=== PATIENT | male | born 1945 | race African-American/Black ===

== ENCOUNTER 2016-11-22 17:08 | Emergency (ER) | payer MEDICARE, MEDICAID ==
[~2016-11-22] VITALS: Ht 172.7 cm; Wt 81.6 kg
--- NOTE | 2016-11-22 17:17 | NUR ---
PT BIB PA FROM NURSING FACILITY C/O GENERALIZED BODY PAIN X1 WEEK. ATRAUMATIC. DENIES RECENT FALLS. NO NEURO DEFICITS. A/OX2, WHICH APPEARS TO BE BASELINE. DENIES N/V/D. IN ER BED 11.
[2016-11-22] MEDS ORDERED: ACETAMINOPHEN ES 500 MG TABLET ONE (17:37)
--- NOTE | 2016-11-22 17:40 | NUR ---
ROOF CEMENT AND PAINT MAKER AT BEDSIDE FOR DRAW
[2016-11-22 17:51] LABS: BASOPHILS % (AUTO) 0.5 % (0.0-2.0); EOSINOPHILS # (AUTO) 0.7 /CMM (0.0-0.7); EOSINOPHILS % (AUTO) 12.9 % (0.0-6.0); HEMATOCRIT 37 % (39-51); HEMOGLOBIN 12.7 g/dL (13.5-17.5); LYMPHOCYTES # (AUTO) 1.7 /CMM (0.8-4.8); LYMPHOCYTES % (AUTO) 31.2 % (20.0-44.0); MEAN CORPUSCULAR HEMOGLOBIN 30 PG (26.0-33.0); MEAN CORPUSCULAR HGB CONC 34 g/dl (31.0-36.0); MEAN CORPUSCULAR VOLUME 90 fL (80-96); MONOCYTES # (AUTO) 0.8 /CMM (0.1-1.30); MONOCYTES % (AUTO) 14.2 % (2.0-12.0); NEUTROPHILS # (AUTO) 2.3 /CMM (1.8-8.9); NEUTROPHILS % (AUTO) 41.2 % (43.0-81.0); PLATELET COUNT (AUTO) 187 /CMM (150-450); RDW COEFFICIENT OF VARIATION 13.4 (11.5-15.0); RED BLOOD CELL COUNT(AUTO) 4.17 MIL/uL (4.5-6.0); WHITE BLOOD COUNT (AUTO) 5.6 K/uL (4.3-11.0)
[2016-11-22] MEDS ORDERED: ACETAMINOPHEN ES 500 MG TABLET PO ONE (18:00)
[2016-11-22 18:01] LABS: CALCIUM, SERUM 8.2 mg/dL (8.5-10.1); CREATININE 0.9 mg/dL (0.6-1.3); POTASSIUM 4.1 mmol/L (3.5-5.1)
[2016-11-22] MEDS ORDERED: MIRT15TA7 PO (18:05)
[2016-11-22] MEDS ORDERED: DOCU-25 PO (18:05)
[2016-11-22] MEDS ORDERED: ACET-868 PO (18:05)
[2016-11-22] MEDS ORDERED: FLUT16SP NS (18:05)
[2016-11-22] MEDS ORDERED: PALI156D IM (18:05)
[2016-11-22] MEDS ORDERED: DIVA250T6 PO (18:05)
[2016-11-22] MEDS ORDERED: CHOL100044 PO (18:05)
[2016-11-22] MEDS ORDERED: MULT-15 PO (18:05)
[2016-11-22] MEDS ORDERED: SITA50TA PO (18:05)
[2016-11-22] MEDS ORDERED: ASCO500T9 PO (18:05)
[2016-11-22] MEDS ORDERED: THIA100T8 PO (18:05)
--- NOTE | 2016-11-22 18:54 | NUR ---
PAGED DR MCLEAN FOR DR CABEZAS
--- NOTE | 2016-11-22 18:58 | NUR ---
DR CABEZAS ON THE LINE WITH DR MCLEAN
--- NOTE | 2016-11-22 19:00 | NUR ---
CALLED [facility] FOR BLS TRANSPORT ETA 1 HOUR
--- NOTE | 2016-11-22 19:21 | NUR ---
resting comfortably, nad noted. ate dinner tray, no nausea/vomiting.
--- NOTE | 2016-11-22 19:58 | NUR ---
Patient discharged to SNF in stable condition. Written and verbal after care instructions given. Patient verbalizes understanding of instruction.
[2016-11-22 19:59] VITALS: BP 133/87
== END 2016-11-22 20:00 ==
LOC: ER 17:22
DX: R51 Headache (principal); E11.8 Type 2 diabetes mellitus with unspecified complications; F20.9 Schizophrenia, unspecified; Z98.890 Other specified postprocedural states
CPT/HCPCS: 36415; 70450; 80048; 85025; 93005; 99285; A4606; Z7610

== ENCOUNTER 2016-12-14 15:08 | Emergency (ER) | payer MEDICARE, MEDICAID ==
[~2016-12-14] VITALS: Ht 175.3 cm; Wt 82.1 kg
[~2016-12-14 15:08] MED LIST: ACET-868 PO; ASCO500T9 PO; CHOL100044 PO; DIVA250T6 PO; DOCU-25 PO; FLUT16SP NS; MIRT15TA7 PO; MULT-15 PO; PALI156D IM; SITA50TA PO; THIA100T8 PO
--- NOTE | 2016-12-14 15:12 | NUR ---
BIBRA FROM [facility] DT CHEST PAIN, ACHING, NON RADIATING, 5/10. PATIENT IS AAO4. APPEARS IN NO APPARENT DISTRESS, RESPIRTION EVEN AND UNLABORED. NO SOB NOTED, PATIENT ON ROOM AIR. SKIN IS WARM TO TOUCH AND NON DIAPHORETIC,PATIENT IS AFEBRILE. GOWNED PT AND PLACED ON TELE MONITOR. IV ON LFT HAND NOTED INTACT.
[2016-12-14] MEDS ORDERED: IBUP-1481 PO (15:18)
[2016-12-14 15:30] LABS: BASOPHILS % (AUTO) 0.8 % (0.0-2.0); EOSINOPHILS # (AUTO) 0.8 /CMM (0.0-0.7); EOSINOPHILS % (AUTO) 15.5 % (0.0-6.0); HEMATOCRIT 37 % (39-51); HEMOGLOBIN 12.5 g/dL (13.5-17.5); LYMPHOCYTES # (AUTO) 1.6 /CMM (0.8-4.8); LYMPHOCYTES % (AUTO) 31.3 % (20.0-44.0); MEAN CORPUSCULAR HEMOGLOBIN 31 PG (26.0-33.0); MEAN CORPUSCULAR HGB CONC 34 g/dl (31.0-36.0); MEAN CORPUSCULAR VOLUME 90 fL (80-96); MONOCYTES # (AUTO) 0.6 /CMM (0.1-1.30); MONOCYTES % (AUTO) 10.9 % (2.0-12.0); NEUTROPHILS # (AUTO) 2.1 /CMM (1.8-8.9); NEUTROPHILS % (AUTO) 41.5 % (43.0-81.0); PLATELET COUNT (AUTO) 221 /CMM (150-450); RDW COEFFICIENT OF VARIATION 12.1 (11.5-15.0); WHITE BLOOD COUNT (AUTO) 5.1 K/uL (4.3-11.0)
[2016-12-14 15:42] LABS: CALCIUM, SERUM 8.3 mg/dL (8.5-10.1); CARBON DIOXIDE 23 mmol/L (21-32); CHLORIDE 108 mmol/L (98-107); CREATININE 1.1 mg/dL (0.6-1.3); GLUCOSE 116 mg/dL (74-106); POTASSIUM 3.7 mmol/L (3.5-5.1); SODIUM SERUM 141 mmol/L (136-145); UREA NITROGEN, BLOOD 16 mg/dL (7-18)
--- NOTE | 2016-12-14 15:45 | NUR ---
NURSING METALLURGICAL ANALYST INFORMED OF TELEMETRY ADMISSION
[2016-12-14 15:46] LABS: INR 1.15 (0.87-1.13); PROTHROMBIN TIME 12.1 SECS (9.5-12.7)
[2016-12-14 15:50] LABS: TROPONIN I < 0.017 ng/mL (0.00-0.056)
--- NOTE | 2016-12-14 15:54 | NUR ---
PAGED DR MCLEAN FOR ADMISSION
--- NOTE | 2016-12-14 16:33 | NUR ---
REPAGED DR MCLEAN FOR CALL BACK
--- NOTE | 2016-12-14 17:02 | NUR ---
CALLED [facility] FOR BLS TRANSPORT BACK TO FACILITY ETA 30 MINUTES
--- NOTE | 2016-12-14 17:55 | NUR ---
REPORT GIVEN TO MED RESPONSE TEAM FOR TRANSPORT BACK TO [facility].
[2016-12-14 18:05] VITALS: BP 109/71
== END 2016-12-14 18:07 ==
LOC: ER 15:10
DX: R07.9 Chest pain, unspecified (principal); M54.5 Low back pain; F20.9 Schizophrenia, unspecified; E11.9 Type 2 diabetes mellitus without complications
CPT/HCPCS: 36415; 71010; 72110; 72170; 80048; 84484; 85025; 85730; 87081; 93005; 99285; A4606; Z7610

== ENCOUNTER 2017-12-24 19:22 | Inpatient (IN) | payer MEDICARE, OTHER ==
[~2017-12-24] VITALS: Ht 172.7 cm; Wt 83.0 kg
[~2017-12-24 19:22] MED LIST changes: +DIVA-76 PO; -DIVA250T6 PO; +DOCU-141 PO; -DOCU-25 PO; +IBUP-1953 PO; -THIA100T8 PO; +THIA100T88 PO
--- NOTE | 2017-12-24 19:45 | NUR ---
TO BED 8 [facility] C/O ALTERED, DROOLING, UNK LAST KNOWN WELL TIME. PT OBTUNDED, ONLY RESPOND TO PAINFUL STIMULI. PT AAOX1, NO CUTE DISTRESS NOTED, RESP EVEN AND UNLABORED. LUNG MENDEZ NDS CRACKLES BILATERALLY. PLACE PT ON CARDIAC MONITORING, CONTINUOUS POX, O2@2L/NC. ER MD AT BEDSIDE TO EVAL PT WITH ORDERS RECEIVED. WILL CARRY OUT ORDERS.
--- NOTE | 2017-12-24 20:05 | NUR ---
PT TRANSPORTED TO RADIOLOGY FOR CT HEAD.
[2017-12-24 20:12] LABS: BASOPHILS # (AUTO) 0.2 /CMM (0.0-0.2); EOSINOPHILS % (AUTO) 0.1 % (0.0-6.0); HEMATOCRIT 48 % (39-51); HEMOGLOBIN 16.5 g/dL (13.5-17.5); LYMPHOCYTES # (AUTO) 1.4 /CMM (0.8-4.8); LYMPHOCYTES % (AUTO) 12.1 % (20.0-44.0); MEAN CORPUSCULAR HEMOGLOBIN 32 PG (26.0-33.0); MEAN CORPUSCULAR HGB CONC 34 g/dl (31.0-36.0); MEAN CORPUSCULAR VOLUME 93 fL (80-96); MONOCYTES # (AUTO) 2.2 /CMM (0.1-1.30); MONOCYTES % (AUTO) 19.8 % (2.0-12.0); NEUTROPHILS # (AUTO) 7.5 /CMM (1.8-8.9); PLATELET COUNT (AUTO) 199 /CMM (150-450); RDW COEFFICIENT OF VARIATION 11.5 (11.5-15.0); RED BLOOD CELL COUNT(AUTO) 5.19 MIL/uL (4.5-6.0); WHITE BLOOD COUNT (AUTO) 11.3 K/uL (4.3-11.0)
[2017-12-24 20:18] LABS: CALCIUM, SERUM 9.5 mg/dL (8.5-10.1); CARBON DIOXIDE 29 mmol/L (21-32); CHLORIDE 107 mmol/L (98-107); CREATININE 1.3 mg/dL (0.6-1.3); GLUCOSE 143 mg/dL (74-106); POTASSIUM 4.3 mmol/L (3.5-5.1); SODIUM SERUM 143 mmol/L (136-145); UREA NITROGEN, BLOOD 18 mg/dL (7-18)
[2017-12-24 20:24] LABS: INR 1.1 (0.85-1.15)
[2017-12-24 20:26] LABS: TROPONIN I < 0.017 ng/mL (0.00-0.056)
--- NOTE | 2017-12-24 20:35 | NUR ---
CALLED DR MCLEAN LEFT A VOICEMAIL.
--- NOTE | 2017-12-24 21:10 | NUR ---
REPORT CALLED TO MULTIPLE SCLEROSIS NURSE GIL. WILL TRANSPORT PT VIA ACLS PROTOCOL.
[2017-12-24 21:25] LABS: NEUTROPHILS % (MANUAL) 67 (42-76)
[2017-12-24 21:26] LABS: LYMPHOCYTES % (MANUAL) 21 % (16-48); MONOCYTES % (MANUAL) 12 % (0-11.0)
[2017-12-24 22:15] VITALS: BP 119/73
[2017-12-24] MEDS ORDERED: ENOXAPARIN SODIUM 40 MG/0.4 ML DISP.SYRIN SQ SCH (22:30)
[2017-12-24] MEDS ORDERED: ONDANSETRON HCL/PF 4 MG/2 ML VIAL IV PRN (22:30)
[2017-12-24] MEDS ORDERED: ACETAMINOPHEN 650 MG/SUPP.RECT RC PRN (22:30)
[2017-12-24] MEDS: IV D5/ 0.9% NACL 1,000 ML IV SCH (22:46)
--- NOTE | 2017-12-24 22:50 | NUR ---
HEAD OF MERCHANDISE BUYING ADMISSION NOTES: PATIENT CAME TO UNIT VIA GURNEY. PATIENT UNRESPONSIVE WHEN HE CAME, NOT RESPONDING TO NAME OR TO TOUCH, HARDLY OPENS EYES TO PAIN STIMULI. CHARGE NURSE, WHO GOT THE REPORT STATED PER ER NURSE, PATIENT IS VERY LETHARGIC. TELE MONITOR IN PLACE, SR 74. ON 2L O2 SATURATING 98-100%. TOLERATING ROOM AIR ON 94%. V/S CHECKED AND RECORDED. BSL 118. SECURITY MEASURES IN PLACE. WILL CONTINUE TO MONITOR Addendum: 12/25/17 at 0427 by BONI BURR RN ADDITIONAL NOTES: PATIENT'S HISTORY AND REVIEW OF SYSTEMS TAKEN FROM PATIENT'S RECORDS PATIENT UNABLE TO ANSWER. PATIENT HAS A POLST. COPY IN CHART
[2017-12-24] MEDS: PANTOPRAZOLE 40 MG VIAL IV SCH (23:20)
[2017-12-24] MEDS ORDERED: CEFTRIAXONE 1 G VIAL ONE (23:21)
[2017-12-24] MEDS: CEFTRIAXONE 1 G in IV D5W 50 ML IV SCH (23:36)
[2017-12-25] VITALS: BP 124/79
--- NOTE | 2017-12-25 00:35 | NUR ---
CLINICAL WRITER NOTES: PATIENT VERY HARD TO WAKE, EVEN WITH PAIN STIMULI. CHARGE NURSE AWARE AND CALLED ICU NURSE TO CHECK ON PATIENT. VITAL SIGNS CHECKED, ALL STABLE. ICU NURSE ASSESSED PATIENT; CHECKED PUPILS, PINPOINT, HARDLY RESPONDING, TRIED TO PINCH NIPPLE AND ASKED IF HE CAN HEAR US, PATIENT OPENED EYES AND ANSWERED, "YES, I CAN HEAR YOU", THEN PATIENT GOES BACK TO SLEEP AGAIN. PATIENT STILL VERY LETHARGIC. PER ICU NURSE, CONTINUE TO MONITOR.
[2017-12-25 04:00] VITALS: BP 131/70
--- NOTE | 2017-12-25 06:27 | NUR ---
TIP PRINTER CLOSING NOTES: PATIENT REMAINS NON-VERBAL. RESPONSIVE TO PAINFUL STIMULI. NOT IN ACUTE DISTRESS. PERIPHERAL IV INFUSING AT 75Ml/HR. BSL CHECKED, 108. TELE MONITOR IN PLACE, SINUS RHYTHM 68. PATIENT CHANGED. ALL NEEDS ATTENDED TO. ALL DUE MEDICATIONS GIVEN ORDERED. WILL ENDORSE SALLY TO AM SHIFT RN
[2017-12-25] MEDS: BLOOD SUGAR DIAGNOSTIC 1 EACH STRIP IN SCH ×4 (06:33→22:13)
--- NOTE | 2017-12-25 07:20 | NUR ---
RN NOTES PATIENT RECEIVED SLEEPING IN BED, RESPONSIVE ONLY TO PANFUL STIMULI, DOES NOT CARRY ON CONVERSATION AT THIS TIME. RESPIRATIONS EVEN AND UNLABORED, VSS, IN NO APPARENT PAIN OR DISCOMFORT AT THIS TIME. IV ACCESS TO LAC PATENT AND INTACT NO REDNESS OR INFILTRATION NOTED. SAFETY MEASURES IN PLACE, WILL CONTINUE TO MONITOR
[2017-12-25 07:39] LABS: CALCIUM, SERUM 8.5 mg/dL (8.5-10.1); POTASSIUM 3.8 mmol/L (3.5-5.1)
[2017-12-25 08:00] VITALS: BP_SYST 106; BP_SYST 129; BP_DIAS 67; BP_DIAS 79
[2017-12-25 08:08] LABS: BASOPHILS % (AUTO) 0.1 % (0.0-2.0); EOSINOPHILS % (AUTO) 0.8 % (0.0-6.0); HEMATOCRIT 41 % (39-51); HEMOGLOBIN 13.7 g/dL (13.5-17.5); LYMPHOCYTES # (AUTO) 1.8 /CMM (0.8-4.8); MEAN CORPUSCULAR HEMOGLOBIN 32 PG (26.0-33.0); MEAN CORPUSCULAR HGB CONC 34 g/dl (31.0-36.0); MEAN CORPUSCULAR VOLUME 94 fL (80-96); MONOCYTES # (AUTO) 2.1 /CMM (0.1-1.30); MONOCYTES % (AUTO) 20.7 % (2.0-12.0); NEUTROPHILS # (AUTO) 6.1 /CMM (1.8-8.9); NEUTROPHILS % (AUTO) 60.4 % (43.0-81.0); PLATELET COUNT (AUTO) 186 /CMM (150-450); RDW COEFFICIENT OF VARIATION 11.8 (11.5-15.0); RED BLOOD CELL COUNT(AUTO) 4.34 MIL/uL (4.5-6.0); WHITE BLOOD COUNT (AUTO) 10.1 K/uL (4.3-11.0)
[2017-12-25 12:00] VITALS: BP 100/55
[2017-12-25] MEDS: IV D5/ 0.9% NACL 1,000 ML IV SCH (12:58)
[2017-12-25] MEDS: DIVALPROEX SODIUM 250 MG TABLET.DR PO SCH ×2 (12:59→16:05)
--- NOTE | 2017-12-25 14:30 | NUR ---
RN NOTES NOTIFIED DR. MCLEAN REGARDING AMMONIA LEVEL, PER MD INSERT NGT AND GIVE LACTULOSE SOON PLACEMENT VERIFIED
[2017-12-25] MEDS ORDERED: LACTULOSE 10 G/15 ML UDC (PYXIS) NG ONE (15:00)
--- NOTE | 2017-12-25 15:00 | NUR ---
RN NOTES URINE SPECIMEN COLLECTED VIA STRAIGHT CATH, TOLERATED PROCEDURE WELL, SPECIMEN PLACED IN REFRIGERATOR LAB CALLED FOR COLLECTION
--- NOTE | 2017-12-25 15:10 | NUR ---
RN NOTES INSERTED 14FR NGT X1 ATTEMPT TO LEFT NOSTRIL, PROCEDURE TOLERATED WELL, NOTED WITH POSITIVE PLACEMENT UPON AUSCULTATION, STAT CXR ORDERED PER MD TO VERIFY PLACEMENT
[2017-12-25 16:00] VITALS: BP 105/69
--- NOTE | 2017-12-25 16:03 | NUR ---
RN NOTES CXR RESULT RECEIVED WITH RECOMMENDATION TO ADVANCE 7-8CM ADVANCED NGT TO 63CM AND SECURED IN PLACE AND POSITIVE PLACEMENT UPONASCULTATION NOTED
[2017-12-25] MEDS ORDERED: PHARMACY TO CHANGE PO MEDS TO GT/NG XX PRN (16:30)
[2017-12-25 17:05] LABS: APPEARANCE,URINE SL CLOUDY (CLEAR); BILIRUBIN,URINE NEGATIVE (NEGATIVE); BLOOD, URINE NEGATIVE Ery/uL (NEGATIVE); COLOR,URINE YELLOW (YELLOW); KETONES,URINE NEGATIVE (NEGATIVE); LEUKOCYTE ESTERASE ,URINE NEGATIVE (NEGATIVE); NITRITE, URINE NEGATIVE (NEGATIVE); PROTEIN,URINE TRACE mg/dl (NEGATIVE); UGLUCOSE NEGATIVE (NEGATIVE)
[2017-12-25 17:35] LABS: BACTERIA,URINE Rare /HPF (None Seen); RBC,URINE 0-2 /HPF (0-2); SQUAMOUS EPITHELIAL CELL,UR Rare /HPF (None Seen)
[2017-12-25] MEDS ORDERED: VALPROIC ACID 250 MG/5 ML UDC GT SCH (18:00)
--- NOTE | 2017-12-25 18:51 | NUR ---
RN NOTES PATIENT SLEEPING IN BED, RESPONSIVE ONLY TO PANFUL STIMULI,ABLE TO RESPOND TO SIMPLE QUESTIONS DOES NOT CARRY ON CONVERSATION AT THIS TIME. RESPIRATIONS EVEN AND UNLABORED, VSS, IN NO APPARENT PAIN OR DISCOMFORT AT THIS TIME. IV ACCESS TO LAC PATENT AND INTACT NO REDNESS OR INFILTRATION NOTED. SAFETY MEASURES IN PLACE, WILL CONTINUE TO MONITOR AND ENDORSE TO NEXT SHIFT FOR CONTINUITY OF CARE
--- NOTE | 2017-12-25 19:30 | NUR ---
RN MS OPENING NOTES RECEIVED PATIENT IN BED, SLEEPING BUT EASILY AROUSABLE, ABLE TO STATE FEW WORDS, BUT UNABLE TO CARRY ON FULL CONVERSATION. RESPIRATIONS EVEN AND UNLABORED, WITH EQUAL RISE AND FALL OF CHEST, ON O2 2 LITERS VIA NC. NO DISTRESS PRESENT, NGT IN PLACE WITH PROPER PLACEMENT. IV SITE TO LEFT AC INTACT AND PATENT, NO REDNESS , NO INFILTRATION PRESENT, IVF RUNNING ORDERED. NO FACIAL GRIMACING NOTED, NO GRUNTS OR MOANS, WILL CONTINUE TO MONITOR, ALL NEEDS ATTENDED AT THIS TIME, HEAD OF BED ELEVATED. SAFETY MEASURES RENDERED,REMAINS COMFORTABLE AT THIS TIME.
[2017-12-25 20:00] VITALS: BP 125/77
[2017-12-25] MEDS: ENOXAPARIN SODIUM 40 MG/0.4 ML DISP.SYRIN SQ SCH (21:13)
[2017-12-25] MEDS: MIRTAZAPINE 15 MG TABLET NG SCH (22:00)
[2017-12-25] MEDS: CEFTRIAXONE 1 G in IV D5W 50 ML IV SCH (22:11)
--- NOTE | 2017-12-25 22:14 | NUR ---
rn ms notes Remeron held per md notes hold sedating medications. will continue to monitor. patient is sleeping but easily arousable able to state simple words.
--- NOTE | 2017-12-25 22:23 | NUR ---
rn ms notes blood sugar 141.
[2017-12-25] MEDS: PANTOPRAZOLE 40 MG VIAL IV SCH (22:26)
[2017-12-26] MEDS: IV D5/ 0.9% NACL 1,000 ML IV SCH ×2 (02:15→18:27)
--- NOTE | 2017-12-26 05:56 | NUR ---
ida chowdary notes blood sugar 114 Addendum: 12/26/17 at 0622 by CHARLES STEVENSON RN correction blood sugar 118
[2017-12-26 06:20] LABS: BASOPHILS % (AUTO) 0.4 % (0.0-2.0); EOSINOPHILS % (AUTO) 3.2 % (0.0-6.0); HEMATOCRIT 40 % (39-51); HEMOGLOBIN 13.6 g/dL (13.5-17.5); LYMPHOCYTES # (AUTO) 1.8 /CMM (0.8-4.8); MEAN CORPUSCULAR HEMOGLOBIN 33 PG (26.0-33.0); MEAN CORPUSCULAR HGB CONC 34 g/dl (31.0-36.0); MEAN CORPUSCULAR VOLUME 96 fL (80-96); MONOCYTES # (AUTO) 1.6 /CMM (0.1-1.30); MONOCYTES % (AUTO) 17.4 % (2.0-12.0); NEUTROPHILS # (AUTO) 5.4 /CMM (1.8-8.9); PLATELET COUNT (AUTO) 173 /CMM (150-450); RDW COEFFICIENT OF VARIATION 12.4 (11.5-15.0); RED BLOOD CELL COUNT(AUTO) 4.17 MIL/uL (4.5-6.0); WHITE BLOOD COUNT (AUTO) 9.2 K/uL (4.3-11.0)
[2017-12-26] MEDS: BLOOD SUGAR DIAGNOSTIC 1 EACH STRIP IN SCH ×4 (06:25→21:39)
[2017-12-26 06:42] LABS: CALCIUM, SERUM 8.4 mg/dL (8.5-10.1); CREATININE 0.9 mg/dL (0.6-1.3); MAGNESIUM 2.5 mg/dL (1.8-2.4); POTASSIUM 3.7 mmol/L (3.5-5.1)
--- NOTE | 2017-12-26 06:48 | NUR ---
RN CLOSING MS NOTES PATIENT IN BED, SLEEPING BUT EASILY AROUSABLE, ABLE TO STATE FEW WORDS, NOTED PATIENT MORE ALERT AT THIS TIME ABLE TO MAKE SIMPLE DECISIONS SUCH YES OR NO. RESPIRATIONS EVEN AND UNLABORED, WITH EQUAL RISE AND FALL OF CHEST, ON O2 2 LITERS VIA NC. NO DISTRESS PRESENT, NGT IN PLACE WITH PROPER PLACEMENT. IV SITE TO LEFT AC INTACT AND PATENT, NO REDNESS , NO INFILTRATION PRESENT, IVF RUNNING ORDERED. NO FACIAL GRIMACING NOTED, NO GRUNTS OR MOANS, WILL CONTINUE TO MONITOR, ALL NEEDS ATTENDED AT THIS TIME, HEAD OF BED ELEVATED. SAFETY MEASURES RENDERED,REMAINS COMFORTABLE AND CLEAN AT THIS TIME, CALL LIGHT KEPT WITHIN REACH, WILL ENDORSE TO NEXT SHIFT.
--- NOTE | 2017-12-26 07:34 | NUR ---
MS RN OPENING NOTE RECEIVED BEDSIDE SBAR REPORT ON THE PATIENT.PATIENT IS A/O X2 (SELF AND PLACE), DISORIENTED TO EVENT, VERBALLY RESPONSIVE. FORGETFUL OF SPECIFIC DATES. PATIENT IS IN BED, BED IS LOCKED IN LOWEST POSITION, SIDE RAILS UP X3, BED ALARM IS ON. CALL LIGHT WITHIN REACH. EDUCATED THE PATIENT TO CALL FOR ASSISTANCE USING THE CALL LIGHT AND VERBALIZED UNDERSTANDING. DENIES PAIN/DISCOMFORT AT THIS TIME. CHEST RISING EQUALLY/BILATERALLY. SPO2 95% ON 2 LPM OXYGEN VIA NASAL CANNULA. NPO. NG TUBE IN PLACE (63). ALL NEEDS ARE MET. WILL CONTINUE TO ASSESS/MONITOR THROUGHOUT THE SHIFT.
[2017-12-26 07:47] LABS: BAND % (MANUAL) 1 % (0.0-5.0); LYMPHOCYTES % (MANUAL) 9 % (16-48); MONOCYTES % (MANUAL) 13 % (0-11.0); NEUTROPHILS % (MANUAL) 77 (42-76)
[2017-12-26 08:00] VITALS: BP 130/83
[2017-12-26] MEDS: VALPROIC ACID 250 MG/5 ML UDC NG SCH ×3 (09:40→18:13)
[2017-12-26 16:00] VITALS: BP 133/89
--- NOTE | 2017-12-26 19:14 | NUR ---
MS RN TRINITY GAVE BEDSIDE SBAR REPORT ON THE PATIENT.PATIENT IS A/O X2 (SELF AND PLACE), DISORIENTED TO EVENT, VERBALLY RESPONSIVE. FORGETFUL OF SPECIFIC DATES. PATIENT IS IN BED, BED IS LOCKED IN LOWEST POSITION, SIDE RAILS UP X3, BED ALARM IS ON. CALL LIGHT WITHIN REACH. EDUCATED THE PATIENT TO CALL FOR ASSISTANCE USING THE CALL LIGHT AND VERBALIZED UNDERSTANDING. DENIES PAIN/DISCOMFORT AT THIS TIME. CHEST RISING EQUALLY/BILATERALLY. SPO2 95% ON 2 LPM OXYGEN VIA NASAL CANNULA. NG TUBE IN PLACE (63). PATIENT WAS SEEN BY DR MCLEAN TODAY. O PATIENT BECAME VERY SOMNOLENT AND WAS UNABLE TO SAFELY SWALLOW THE DEPAKOTE. NG TUBE REMAINS UNTIL TOMORROW. CHARGE NURSE INFORMED. ALL NEEDS ARE MET. ENDORSED TO THE HEALTH COMMISSIONER NURSE FOR SALLY.
--- NOTE | 2017-12-26 19:30 | NUR ---
RN NOTES RECEIVED PATIENT IN BED AWAKE, AO X 1, ABLE TO MAKE NEEDS KNOWN. NO ACUTE DISTRESS NOTED. DENIES ANY PAIN AT THIS TIME. IV SITE PATENT, INTACT; IVF INFUSING ORDERED. SAFETY REMINDERS GIVEN. ON LOW BED WITH BILATERAL UPPER SIDE RAILS UP. CALL PAGE WITHIN EASY REACH. WILL CONTINUE TO MONITOR.
[2017-12-26 20:00] VITALS: BP 136/75
[2017-12-26] MEDS: ENOXAPARIN SODIUM 40 MG/0.4 ML DISP.SYRIN SQ SCH (21:39)
[2017-12-26] MEDS: MIRTAZAPINE 15 MG TABLET NG SCH (22:00)
--- NOTE | 2017-12-26 22:12 | NUR ---
RN NOTES PATIENT VERY SLEEPY BUT AROUSABLE. REMERON NOT GIVEN.
[2017-12-26] MEDS: CEFTRIAXONE 1 G in IV D5W 50 ML IV SCH (22:57)
[2017-12-26] MEDS: PANTOPRAZOLE 40 MG VIAL IV SCH (22:58)
[2017-12-27] MEDS: IV D5/ 0.9% NACL 1,000 ML IV SCH ×2 (04:43→17:40)
--- NOTE | 2017-12-27 06:31 | NUR ---
RN NOTES PATIENT ASLEEP, EASILY AROUSABLE. RESPIRATIONS EVEN. NO SIGNS OF PAIN NOTED. NO SYMPTOMS OF HYPER/HYPOGLYCEMIA. DUE MEDS GIVEN WITH NO ASE NOTED. NEEDS ATTENDED. KEPT CLEAN, DRY, AND COMFORTABLE. SAFETY PRECAUTIONS AND COMFORT MEASURES IN PLACE. WILL GIVE REPORT TO DAY SHIFT FOR CONTINUITY OF CARE.
[2017-12-27] MEDS: BLOOD SUGAR DIAGNOSTIC 1 EACH STRIP IN SCH ×4 (06:38→21:27)
[2017-12-27 07:25] LABS: BASOPHILS % (AUTO) 0.4 % (0.0-2.0); EOSINOPHILS % (AUTO) 6.8 % (0.0-6.0); HEMATOCRIT 39 % (39-51); HEMOGLOBIN 13.1 g/dL (13.5-17.5); LYMPHOCYTES # (AUTO) 1.3 /CMM (0.8-4.8); LYMPHOCYTES % (AUTO) 19.5 % (20.0-44.0); MEAN CORPUSCULAR HEMOGLOBIN 32 PG (26.0-33.0); MEAN CORPUSCULAR HGB CONC 34 g/dl (31.0-36.0); MEAN CORPUSCULAR VOLUME 95 fL (80-96); MONOCYTES # (AUTO) 1.2 /CMM (0.1-1.30); NEUTROPHILS # (AUTO) 3.8 /CMM (1.8-8.9); NEUTROPHILS % (AUTO) 55.3 % (43.0-81.0); PLATELET COUNT (AUTO) 189 /CMM (150-450); RDW COEFFICIENT OF VARIATION 12.7 (11.5-15.0); WHITE BLOOD COUNT (AUTO) 6.8 K/uL (4.3-11.0)
--- NOTE | 2017-12-27 07:26 | NUR ---
MS/RN OPENING NOTE PATIENT IS RECEIVED IN BED AWAKE. ALERT AND ORIENTED X1. DENIES SOB. RESPIRATION REGULAR AND UNLABORED. PATIENT RECEIVING OXYGEN AT 2L/MIN VIA NC. DENIES PAIN. PATIENT IN NO APPARENT DISTRESS. NG TUBE IN PLACE. PATIENT INCONTINENT. LAC G 18 PATENT AND IV FLUIDS INFUSING WITH NO S/S INFILTRATION. BED LOW AND LOCKED. SIDE RAILS UP X3. CALL LIGHT WITHIN REACH. WILL CONTINUE TO MONITOR.
[2017-12-27 07:34] LABS: CALCIUM, SERUM 7.7 mg/dL (8.5-10.1); CREATININE 0.8 mg/dL (0.6-1.3); POTASSIUM 3.5 mmol/L (3.5-5.1)
[2017-12-27 08:00] VITALS: BP 133/75
[2017-12-27] MEDS: VALPROIC ACID 250 MG/5 ML UDC NG SCH ×3 (08:09→17:40)
[2017-12-27 09:00] LABS: BAND % (MANUAL) 1 % (0.0-5.0); EOSINOPHILS % (MANUAL) 5 % (0-4); LYMPHOCYTES % (MANUAL) 20 % (16-48); MONOCYTES % (MANUAL) 8 % (0-11.0); NEUTROPHILS % (MANUAL) 66 (42-76)
--- NOTE | 2017-12-27 10:10 | NUR ---
WOUND CARE CONSULT: PT PRESENTS WITH INTACT SKIN AND VERY DRY SCALY AND FLAKY SKIN TO LOWER EXTREMITIES, PRESENT ON ADMISSION. RECOMMENDATIONS MADE FOR SKIN CARE AND PROTECTION. DISCUSSED WITH NURSING STAFF. DRY ABRASION NOTED TO RT UPPER ARM, PRESENT ON ADMISSION. WILL SEE PRN. GU IN AGREEMENT WITH PLAN OF CARE. Addendum: 12/27/17 at 1011 by JAVIER GOULD WNDNU Amended: Links added.
[2017-12-27] MEDS ORDERED: MINERAL OIL/PETROLATUM,WHITE 120 GM JAR TP PRN (10:30)
[2017-12-27 10:44] VITALS: BP 131/76
[2017-12-27] MEDS: Z GUARD REMEDY 2 OZ OINT TP SCH (12:00)
--- NOTE | 2017-12-27 13:11 | NUR ---
MS/RN NOTE PATIENT IS SEEN AND EXAMINED BY DR MCLEAN WITH NEW ORDER RN TO REMOVE NG TUBE 12/27/17. THE ORDER IS READ BACK, VERIFIED. NOTED AND CARRIED OUT. NG TUBE WAS REMOVED PER POLICY. THE PATIENT TOLERATED THE REMOVAL WELL. NO MISSING PARTS. NO ORAL AND NO NASAL MUCOSA IRRITATION/BLEEDING POST REMOVAL. WILL CONTINUE TO MONITOR.
[2017-12-27 16:00] VITALS: BP 131/60
--- NOTE | 2017-12-27 18:04 | NUR ---
MS/RN CLOSING NOTE PATIENT ALERT AND ORIENTED X1. NO MANIFESTATION OD DISTRESS. RESPIRATION REGULAR AND UNLABORED. LAC G 18 PATENT AND IV FLUID IS INFUSING WITH NO S/S INFILTRATION. PATENT WITH NO DIGITAL AD TRAFFICKER TUBE AND HE TOLERATED FOOD AND DRINKS WELL ORDERED. NO COUGHING AND CHOCKING WHEN EATING. PATIENT WITH GOOD APPETITE. GOOD AND GENTLE SKIN CARE IS PROVIDED. KEPT CLEAN AND COMFORTABLE. TURNED AND REPOSITIONED Q2HR AND NEEDED. ALL NEEDS ATTENDED AND ANTICIPATED. BED LOW AND LOCKED. SIDE RAILS UP X3. CALL LIGHT WITHIN REACH. WILL ENDORSE TO SETTER HELPER.
--- NOTE | 2017-12-27 19:30 | NUR ---
RN NOTES RECEIVED PATIENT IN BED SLEEPING BUT AROUSABLE TO VOICE AND TOUCH. AO X 1, ABLE TO MAKE NEEDS KNOWN. NO ACUTE DISTRESS NOTED. DENIES ANY PAIN AT THIS TIME. IV SITE PATENT, INTACT; IVF INFUSING ORDERED. SAFETY REMINDERS GIVEN. ON LOW BED WITH BILATERAL UPPER SIDE RAILS UP. CALL PAGE WITHIN EASY REACH. WILL CONTINUE TO MONITOR.
[2017-12-27 20:00] VITALS: BP 137/69
[2017-12-27] MEDS: ENOXAPARIN SODIUM 40 MG/0.4 ML DISP.SYRIN SQ SCH (21:26)
[2017-12-27] MEDS: MIRTAZAPINE 15 MG TABLET NG SCH (22:00)
[2017-12-27] MEDS: PANTOPRAZOLE 40 MG VIAL IV SCH (22:50)
--- NOTE | 2017-12-27 22:55 | NUR ---
RN NOTES PATIENT IS VERY SLEEPY BUT AROUSABLE. PATIENT UNABLE TO TAKE ANYTHING PO SAFELY AT THIS TIME DUE TO SLEEPINESS. REMERON NOT ADMINISTERED.
[2017-12-28] MEDS: IV D5/ 0.9% NACL 1,000 ML IV SCH ×2 (06:11→17:09)
[2017-12-28] MEDS: BLOOD SUGAR DIAGNOSTIC 1 EACH STRIP IN SCH ×4 (06:33→22:11)
[2017-12-28 07:18] LABS: BASOPHILS % (AUTO) 0.1 % (0.0-2.0); EOSINOPHILS % (AUTO) 1.3 % (0.0-6.0); HEMATOCRIT 41 % (39-51); HEMOGLOBIN 13.6 g/dL (13.5-17.5); LYMPHOCYTES # (AUTO) 1.4 /CMM (0.8-4.8); LYMPHOCYTES % (AUTO) 10.3 % (20.0-44.0); MEAN CORPUSCULAR HEMOGLOBIN 32 PG (26.0-33.0); MEAN CORPUSCULAR HGB CONC 33 g/dl (31.0-36.0); MEAN CORPUSCULAR VOLUME 95 fL (80-96); MONOCYTES # (AUTO) 2.6 /CMM (0.1-1.30); MONOCYTES % (AUTO) 19.1 % (2.0-12.0); NEUTROPHILS # (AUTO) 9.4 /CMM (1.8-8.9); NEUTROPHILS % (AUTO) 69.2 % (43.0-81.0); PLATELET COUNT (AUTO) 221 /CMM (150-450); RDW COEFFICIENT OF VARIATION 12.3 (11.5-15.0); WHITE BLOOD COUNT (AUTO) 13.5 K/uL (4.3-11.0)
[2017-12-28 07:32] LABS: MAGNESIUM 2.2 mg/dL (1.8-2.4); POTASSIUM 3.4 mmol/L (3.5-5.1)
--- NOTE | 2017-12-28 07:32 | NUR ---
RN OPENING NOTES PT. IS IN BED SLEEPING, EASILY AROUSABLE. BREATHING UNLABORED, AND EVENLY ON OXYGEN AT 2L/MIN VIA NASAL CANNULA. NO SOB, AND NO S/S OF ACUTE DISTRESS. IV FLUIDS RUNNING AT 75 ML/HR. BED IS IN LOWEST AND LOCKED POSITION. 2 SIDE RAILS UP. CALL LIGHT WITHIN REACH. WILL CONTINUE TO ASSESS AND MONITOR.
[2017-12-28 08:00] VITALS: BP 144/66
--- NOTE | 2017-12-28 08:00 | NUR ---
RN NOTES PT. HAD A TEMP. 100.4, COOLING MEASURES INITIATED. TEMPERATURE IN ROOM WAS SET TO COOL, PLACED 2 ICE PACKS UNDER AXILLA, AND TYLENOL RECTAL SUPPOSITORY WAS ADMINISTERED. WILL CONTINUE TO ASSESS AND MONITOR. PT. WAS SEEN AND EXAMINED BY MD, DISCUSSED PT.'S CONDITION WITH MD, AND NO NEW ORDERS GIVEN.
[2017-12-28 08:51] LABS: BAND % (MANUAL) 3 % (0.0-5.0); EOSINOPHILS % (MANUAL) 1 % (0-4); LYMPHOCYTES % (MANUAL) 9 % (16-48); MONOCYTES % (MANUAL) 22 % (0-11.0); NEUTROPHILS % (MANUAL) 65 (42-76)
[2017-12-28] MEDS: VALPROIC ACID 250 MG/5 ML UDC NG SCH ×3 (09:00→17:47)
[2017-12-28] MEDS: Z GUARD REMEDY 2 OZ OINT TP PRN (09:18)
[2017-12-28] MEDS: Z GUARD REMEDY 2 OZ OINT TP SCH (09:19)
--- NOTE | 2017-12-28 09:50 | NUR ---
RN NOTES PT. IS UNABLE TO SWALLOW PO INCLUDING VALPROIC ACID. PT. IS NON VERBAL, RESPONSIVE TO PAINFUL STIMULI, AND OPENS EYES. PT.'S FEVER IS 100.2. MD WAS NOTIFIED.
--- NOTE | 2017-12-28 10:09 | NUR ---
PT.'S TEMP IS 98.8 F. PT. IS SLEEPY, AND NON VERBAL. PT. CAN OPEN EYES TO PAINFUL STIMULI.
--- NOTE | 2017-12-28 10:20 | NUR ---
CALLED MD FOR ORDERS TO REPORT PT.'S CONDITION. LEFT MESSAGE WITH SUGAR CONTROLLER FOR MD TO CALL BACK.
[2017-12-28] MEDS ORDERED: POTASSIUM CHLORIDE 20 MEQ POWDER PACKET NG SCH (12:00)
[2017-12-28] MEDS: LEVOFLOXACIN 500 MG /D5W 100ML 500 MG in PREMIX 1 EA IV SCH (13:09)
[2017-12-28 16:00] VITALS: BP 113/64
--- NOTE | 2017-12-28 18:24 | NUR ---
PT. CONSUMED 100% OF HIS DIET WITH TOTAL ASSIST. KEPT PT. HEAD OF BED UP AFTER MEAL.
--- NOTE | 2017-12-28 18:46 | NUR ---
RN CLOSING NOTES PT. IS IN BED A&OX1, CONFUSED, ABLE TO FOLLOW INSTRUCTIONS. BREATHING UNLABORED, AND EVENLY ON OXYGEN AT 1L/MIN VIA NASAL CANNULA. NO SOB, AND NO S/S OF ACUTE DISTRESS. IV FLUIDS RUNNING AT 75 ML/HR. BED IS IN LOWEST AND LOCKED POSITION. 2 SIDE RAILS UP. CALL LIGHT WITHIN REACH. WILL ENDORSE REPORT TO NURSE.
--- NOTE | 2017-12-28 19:25 | NUR ---
MS RN OPENING NOTES RECEIVED PT RESTING IN BED, A & O X 1, NON VERBAL, CONFUSED, OPENS EYES WHEN CALLED HIS NAME. BREATHING UNLABORED, AND EVENLY ON OXYGEN AT 1L/MIN VIA NASAL CANNULA. NO SOB, AND NO S/S OF ACUTE DISTRESS. NO S/S OF PAIN NOTED. IV ACCESS TO LAC, INTACT PATENT, RUNNING WITH IVF AT 75 ML/HR ORDERED. HAD EPISODE OF BODY TEMP OF 100.4 PER AM RN BUT RESOLVED AFTER RECTAL SUPP WAS GIVEN IN AM SHIFT. NO FEVER NOTED @ THIS TIME. INCONTINENT OF B & BM. BED IS IN LOWEST AND LOCKED POSITION. 2 SIDE RAILS UP. CALL LIGHT WITHIN REACH. WILL CONTINUE TO MONITOR.
[2017-12-28 20:00] VITALS: BP 127/77
[2017-12-28] MEDS: MIRTAZAPINE 15 MG TABLET NG SCH (22:00)
[2017-12-28] MEDS: ENOXAPARIN SODIUM 40 MG/0.4 ML DISP.SYRIN SQ SCH (22:06)
[2017-12-28] MEDS: PANTOPRAZOLE 40 MG VIAL IV SCH (22:18)
--- NOTE | 2017-12-28 22:19 | NUR ---
LAI AYERS PT NOTED TO BE LETHARGIC @ THIS TIME, OPENS EYES WHEN CALLED HIS NAME OR TOUCHED HIM. LAI AYERS. WILL MONITOR CLOSELY FOR ANY SALLY.
[2017-12-29 07:04] LABS: CREATININE 0.8 mg/dL (0.6-1.3); MAGNESIUM 2.2 mg/dL (1.8-2.4); POTASSIUM 3.4 mmol/L (3.5-5.1)
[2017-12-29] MEDS: BLOOD SUGAR DIAGNOSTIC 1 EACH STRIP IN SCH ×4 (07:24→22:17)
[2017-12-29] MEDS: IV D5/ 0.9% NACL 1,000 ML IV SCH ×2 (07:25→22:10)
--- NOTE | 2017-12-29 07:29 | NUR ---
MS RN CLOSING NOTES PT SLEPT WELL @ NIGHT, A & O X 1, ABLE TO TALK & ANSWER SIMPLE QUESTIONS, MORE AWAKE & ALERT THAN YESTERDAY. CONFUSED, BREATHING UNLABORED, AND EVENLY ON OXYGEN AT 2L/MIN VIA NASAL CANNULA. NO SOB, AND NO S/S OF ACUTE DISTRESS. NO S/S OF PAIN NOTED. PRODUCTIVE COUGH NOTED. IV ACCESS TO LAC, INTACT PATENT, RUNNING WITH IVF AT 75 ML/HR ORDERED. NO FEVER NOTED THROUGHOUT THE SHIFT. INCONTINENT OF B & BM. BED IN LOWEST AND LOCKED POSITION. SR X 2 UP. CALL LIGHT WITHIN REACH. SAFETY MEASURES IN PLACE. ENDORSED TO AM RN FOR CONTINUITY OF CARE.
--- NOTE | 2017-12-29 07:30 | NUR ---
RN OPENING NOTES PT. IS IN BED A&OX1, PT. WAS ABLE TO VERBALIZE HIS NAME, AND THAT HE WAS COLD. PT. IS BREATHING UNLABORED, AND EVENLY ON OXYGEN AT 1L/MIN VIA NASAL CANNULA. NO SOB, AND NO S/S OF ACUTE DISTRESS. IV FLUIDS RUNNING AT 75 ML/HR. BED IS IN LOWEST AND LOCKED POSITION. 2 SIDE RAILS UP. CALL LIGHT WITHIN REACH. WILL CONTINUE TO ASSESS AND MONITOR.
[2017-12-29 08:00] VITALS: BP 118/73
[2017-12-29] MEDS: Z GUARD REMEDY 2 OZ OINT TP PRN (09:02)
[2017-12-29] MEDS: VALPROIC ACID 250 MG/5 ML UDC NG SCH ×3 (09:02→17:18)
[2017-12-29] MEDS: Z GUARD REMEDY 2 OZ OINT TP SCH (09:11)
[2017-12-29] MEDS ORDERED: POTASSIUM CHLORIDE 20 MEQ POWDER PACKET PO SCH (10:30)
[2017-12-29] MEDS: LEVOFLOXACIN 500 MG /D5W 100ML 500 MG in PREMIX 1 EA IV SCH (12:44)
--- NOTE | 2017-12-29 12:48 | NUR ---
PT. STATED THAT HE IS "FEELING BETTER."
[2017-12-29 16:00] VITALS: BP 104/68
--- NOTE | 2017-12-29 19:31 | NUR ---
RN CLOSING NOTES PT. IS IN BED A&OX1, PT. IS VERBAL, AND CAN STATE HIS NAME. PT. IS BREATHING UNLABORED, AND EVENLY ON OXYGEN AT 1L/MIN VIA NASAL CANNULA. NO SOB, AND NO S/S OF ACUTE DISTRESS. IV FLUIDS RUNNING AT 75 ML/HR. BED IS IN LOWEST AND LOCKED POSITION. 2 SIDE RAILS UP. CALL LIGHT WITHIN REACH. WILL ENDORSE REPORT TO NURSE.
--- NOTE | 2017-12-29 19:50 | NUR ---
MS/SENIOR MOBILE SOLUTIONS ARCHITECT; RECEIVED PT IN BED WITH THE DAY SHIFT RN ROUNDS ; PT IS AWAKE, ALERT AND VERBALLY RESPONSIVE. BREATHING NON LABORED. WITH O2 2L NC ON. IVF ON PROGRESS. HOB ELEVATED. DENIES PAIN. BED ON LOWER POSITION FOR SAFETY. SIDE RAILS ARE UP FOR SAFETY. CONTINUE TO MONITOR. CALL LIGHT WITHIN REACH.
[2017-12-29 20:00] VITALS: BP 144/78
[2017-12-29] MEDS: ENOXAPARIN SODIUM 40 MG/0.4 ML DISP.SYRIN SQ SCH (21:46)
--- NOTE | 2017-12-29 22:00 | NUR ---
MS/HYDRAULIC PRESS TENDER; BS 120 NO COVERAGE GIVEN. IVF ON PROGRESS.
[2017-12-29] MEDS: MIRTAZAPINE 15 MG TABLET NG SCH (22:20)
--- NOTE | 2017-12-29 22:30 | NUR ---
MS/DIRECTOR SKILLS; PT IS AWAKE, ALERT AND VERBALLY RESPONSIVE. IVF ON PROGRESS.
[2017-12-29] MEDS: PANTOPRAZOLE 40 MG VIAL IV SCH (22:41)
--- NOTE | 2017-12-29 23:15 | NUR ---
MS/HOT TOP LINER HELPER; RE CHECKED THE PT AWAKE AND VERBALLY RESPONSIVE. BREATHING NON LABORED.
--- NOTE | 2017-12-30 06:00 | NUR ---
MS /DISTRICT COURT BAILIFF; BS 85 NO COVERAGE. IVF ON PROGRESS.
[2017-12-30] MEDS: BLOOD SUGAR DIAGNOSTIC 1 EACH STRIP IN SCH ×2 (06:18→12:37)
--- NOTE | 2017-12-30 06:54 | NUR ---
MS/SENIOR GAMEMASTER; SLEPT AT INTERVALS. STILL WITH COUGH. INCONTINENT OF URINE AND BM . IVF ON PROGRESS. PT IS NOT LETHARGIC. ALERT AND VERBALLY RESPONSIVE. AM CARE DONE BY THE PATTERN PUNCHER. REPOSITIONED. WILL CONTINUE TO MONITOR. CALL LIGHT WITHIN REACH. WILL ENDORSE TO THE DAY SHIFT NURSE.
--- NOTE | 2017-12-30 07:10 | NUR ---
ms rn initial notes Received patient in bed, asleep, head of bed elevated, no SOB or distress noted, on 02 @ 2lom via NC and tolerated well. Patient is alert and oriented x 1, confused. IV intact and patent with IVF infusing well. No facial grimace noted. Call light with in patient reach, will continue to monitor accordingly.
[2017-12-30 07:18] LABS: BASOPHILS % (AUTO) 0.3 % (0.0-2.0); EOSINOPHILS % (AUTO) 5.5 % (0.0-6.0); HEMATOCRIT 36 % (39-51); LYMPHOCYTES # (AUTO) 1.8 /CMM (0.8-4.8); LYMPHOCYTES % (AUTO) 19.4 % (20.0-44.0); MEAN CORPUSCULAR HEMOGLOBIN 32 PG (26.0-33.0); MEAN CORPUSCULAR HGB CONC 34 g/dl (31.0-36.0); MEAN CORPUSCULAR VOLUME 96 fL (80-96); MONOCYTES # (AUTO) 1.5 /CMM (0.1-1.30); MONOCYTES % (AUTO) 16.8 % (2.0-12.0); NEUTROPHILS # (AUTO) 5.3 /CMM (1.8-8.9); PLATELET COUNT (AUTO) 246 /CMM (150-450); RDW COEFFICIENT OF VARIATION 12.5 (11.5-15.0); RED BLOOD CELL COUNT(AUTO) 3.74 MIL/uL (4.5-6.0); WHITE BLOOD COUNT (AUTO) 9.1 K/uL (4.3-11.0)
[2017-12-30 07:23] LABS: CALCIUM, SERUM 7.7 mg/dL (8.5-10.1); CREATININE 0.8 mg/dL (0.6-1.3); MAGNESIUM 2.1 mg/dL (1.8-2.4); POTASSIUM 3.3 mmol/L (3.5-5.1)
[2017-12-30 08:00] VITALS: BP 145/74
[2017-12-30 08:28] VITALS: BP 145/74
[2017-12-30] MEDS: VALPROIC ACID 250 MG/5 ML UDC NG SCH ×2 (08:35→12:39)
[2017-12-30] MEDS: Z GUARD REMEDY 2 OZ OINT TP SCH (08:36)
[2017-12-30] MEDS ORDERED: POTASSIUM CHLORIDE 20 MEQ POWDER PACKET NG SCH ×2 (10:00→11:30)
[2017-12-30 10:21] LABS: BAND % (MANUAL) 3 % (0.0-5.0); EOSINOPHILS % (MANUAL) 4 % (0-4); LYMPHOCYTES % (MANUAL) 23 % (16-48); MONOCYTES % (MANUAL) 18 % (0-11.0); MYELOCYTES % 3 % (0-0); NEUTROPHILS % (MANUAL) 49 (42-76)
[2017-12-30] MEDS: IV D5/ 0.9% NACL 1,000 ML IV SCH (12:37)
--- NOTE | 2017-12-30 12:41 | NUR ---
MS RN NOTES Blood sugar checked 92 no coverage given.
[2017-12-30] MEDS ORDERED: LEVOFLOXACIN (500MG) 500 MG TABLET PO SCH (13:00)
--- NOTE | 2017-12-30 16:00 | NUR ---
ms internal consultant notes Discharge instructions not given to patient due to condition. [facility] given to Ann Marie BERNARDO and able to understand instructions. Patient left via gurney accompanied by 2 EMT's in stable condition. No facial grimace noted. Flu vaccine is out of season, PNA not given. Skin assessment done and pictures taken and filed in the patient's chart. Vital signs checked and recorded. MD and charge nurse aware.
== END 2017-12-30 15:45 | DRG 871 ==
LOC: ER 19:31 → TELE 21:14 → MED 12-25 17:16
PROVIDERS: ADMIT Legal Medicine; ATTEND Legal Medicine
DX: A41.9 Sepsis, unspecified organism (principal); J18.9 Pneumonia, unspecified organism; E72.20 Disorder of urea cycle metabolism, unspecified; K72.90 Hepatic failure, unspecified without coma; F20.9 Schizophrenia, unspecified; K21.9 Gastro-esophageal reflux disease without esophagitis; E11.9 Type 2 diabetes mellitus without complications; I10 Essential (primary) hypertension; F03.90 Unspecified dementia, unspecified severity, without behavioral disturbance, psychotic disturbance, mood disturbance, and anxiety; G89.29 Other chronic pain; M54.5 Low back pain; F29 Unspecified psychosis not due to a substance or known physiological condition
CPT/HCPCS: 36415; 70450-TC; 71045-TC; 80048-TC; 81000-TC; 82140-TC; 82962-TC; 83735-TC; 84484-TC; 85025-TC; 85730-TC; 87081-TC; 87086-TC; 92521; 92526; A4216; A4606; C9113; J0696; J1650; J1956; J7042; J7060; Z7610

== ENCOUNTER 2018-01-02 18:23 | Inpatient (IN) | payer MEDICARE, OTHER ==
[~2018-01-02] VITALS: Ht 177.8 cm; Wt 82.6 kg
--- NOTE | 2018-01-02 18:30 | NUR ---
[id number] FROM [facility]: SOB, HYPOXIA, MORE ALTERED x 1 DAY. A/OX 1, BREATHING EVEN AND UNLABORED ON 15 L OXYGEN VIA NON REBREATHER MASK. NO DISTRESS NOTED. SAFETY AND COMFORT MEASURES IN PLACE. AWAITING MD ORDERS.
--- NOTE | 2018-01-02 19:02 | NUR ---
EXPORT ADMINISTRATOR AT BEDSIDE FOR BLOOD DRAW.
--- NOTE | 2018-01-02 19:07 | NUR ---
INDUSTRIAL MAINTENANCE INSTRUCTOR AT BEDSIDE
[2018-01-02 19:09] LABS: BASOPHILS # (AUTO) 0.1 /CMM (0.0-0.2); BASOPHILS % (AUTO) 0.7 % (0.0-2.0); EOSINOPHILS % (AUTO) 3.4 % (0.0-6.0); HEMATOCRIT 38 % (39-51); HEMOGLOBIN 13.4 g/dL (13.5-17.5); LYMPHOCYTES # (AUTO) 1.4 /CMM (0.8-4.8); LYMPHOCYTES % (AUTO) 17.6 % (20.0-44.0); MEAN CORPUSCULAR HEMOGLOBIN 32 PG (26.0-33.0); MEAN CORPUSCULAR HGB CONC 35 g/dl (31.0-36.0); MEAN CORPUSCULAR VOLUME 91 fL (80-96); MONOCYTES # (AUTO) 1.4 /CMM (0.1-1.30); MONOCYTES % (AUTO) 17.2 % (2.0-12.0); NEUTROPHILS % (AUTO) 61.1 % (43.0-81.0); PLATELET COUNT (AUTO) 332 /CMM (150-450); RDW COEFFICIENT OF VARIATION 11.6 (11.5-15.0); RED BLOOD CELL COUNT(AUTO) 4.19 MIL/uL (4.5-6.0); WHITE BLOOD COUNT (AUTO) 8.2 K/uL (4.3-11.0)
[2018-01-02 19:22] LABS: INR 1.09 (0.85-1.15)
[2018-01-02 19:26] LABS: TROPONIN I < 0.017 ng/mL (0.00-0.056)
--- NOTE | 2018-01-02 19:32 | NUR ---
16 FR urbina catheter inserted per sterile protocal. Immediate output 5ML, YELLOW, CLEAR
--- NOTE | 2018-01-02 19:33 | NUR ---
UNABLE TO START NEW IV WITH 2 NURSES ATTEMPT, INFORMED, STATED TO CALL FOR MIDLINE NURSE.
[2018-01-02 19:39] LABS: CALCIUM, SERUM 8.5 mg/dL (8.5-10.1); CARBON DIOXIDE 26 mmol/L (21-32); CHLORIDE 106 mmol/L (98-107); CREATININE 0.7 mg/dL (0.6-1.3); GLUCOSE 122 mg/dL (74-106); POTASSIUM 3.8 mmol/L (3.5-5.1); SODIUM SERUM 139 mmol/L (136-145); UREA NITROGEN, BLOOD 9 mg/dL (7-18)
--- NOTE | 2018-01-02 19:43 | NUR ---
REPORT GIVEN TO VIGNESH BERNARDO FOR SALLY.
[2018-01-02 19:46] LABS: ALANINE AMINOTRANSFERASE 44 U/L (12-78); ALBUMIN 2.7 g/dL (3.4-5.0); ALKALINE PHOSPHATASE 65 U/L (46-116); ASPARTATE AMINOTRANSFERASE 31 U/L (15-37); BILIRUBIN,DIRECT 0.1 mg/dL (0.0-0.2); BILIRUBIN,TOTAL 0.4 mg/dL (0.2-1.0); TOTAL PROTEIN, SERUM 6.3 g/dL (6.4-8.2)
[2018-01-02 19:55] LABS: EOSINOPHILS % (MANUAL) 4 % (0-4); LYMPHOCYTES % (MANUAL) 20 % (16-48); MONOCYTES % (MANUAL) 18 % (0-11.0); NEUTROPHILS % (MANUAL) 58 (42-76)
--- NOTE | 2018-01-02 20:19 | NUR ---
CALLED [facility] FOR PANEL - CIVIL CAD DESIGNER IS GERONIMO
[2018-01-02 20:30] LABS: ABG BASE EXCESS 0.3 mmol/L; ABG OXYGEN SATURATION 94.8 % (92.0-98.5); ABG PCO2 35.2 mmHg (35.0-45.0); ABG PH 7.448 (7.350-7.450); AaDO2 30.6 mmHg; COHb 0.4 % (0.5-1.5); MetHb 0.6 % (0.0-1.5); O2Hb 93.9 % (94.0-97.0); SITE, ABG Left Radial; VENT MODE, BG RA
--- NOTE | 2018-01-02 20:37 | NUR ---
CALLED NURSE SUP FOR TELE BED
[2018-01-02] MEDS ORDERED: CEFEPIME 1 GM in IV D5W 50 ML IV ONE (21:00)
[2018-01-02] MEDS ORDERED: VANCOMYCIN 1 GM in IV D5W 250 ML IV ONE (21:00)
[2018-01-02] MEDS ORDERED: CEFEPIME 1 GM VIAL ONE (21:17)
[2018-01-02] MEDS ORDERED: VANCOMYCIN 1 GM VIAL ONE (21:17)
--- NOTE | 2018-01-02 22:20 | NUR ---
NEW BED 327-2
[2018-01-02 22:45] VITALS: BP 131/90
--- NOTE | 2018-01-02 22:45 | NUR ---
TELE/COUNTER PERSON; ADMITTED 72 YEARS OLD MALE PT FROM ER ACCOMPANIED BY FEMALE RN AND MALE ER STAFF VIA GREGORIA WITH DX; CHF, PNA. PT AWAKE, ALERT AND VERBALLY RESPONSIVE WITH CONFUSION. TELE PT PLACED ON KEYSEATER OPERATOR BOX. BREATHING NON LABORED. HL ON SHAAN INTACT. PT WITH DISCOLORATION BOTH FEET AND REDNESS LT HEEL. BOTH FEET ARE SWOLLEN AND KEEP ELEVATED WITH PILLOWS. ABDOMEN SLIGHT FIRM WITH HYPO BS. DENIES PAIN. WITH FC INSERTED IN ER WITH YELLOW URINE. BED ON LOWER POSITION AND LOCKED FOR SAFETY. SIDE RAILS ARE UP FOR SAFETY. CALL LIGHT WITHIN REACH. WILL CONTINUE TO MONITOR.
[2018-01-02 23:00] VITALS: BP 131/90
[2018-01-02] MEDS ORDERED: ONDANSETRON HCL/PF 4 MG/2 ML VIAL IVP PRN (23:30)
[2018-01-02] MEDS ORDERED: MORPHINE SULFATE INJ 2 MG/ML DISP.SYRIN IV PRN (23:30)
[2018-01-02] MEDS ORDERED: IBUPROFEN 400 MG TABLET PO PRN (23:30)
[2018-01-02] MEDS ORDERED: ALBUTEROL FS 2.5 MG/3 ML VIAL.NEB NEB PRN (23:30)
--- NOTE | 2018-01-02 23:50 | NUR ---
TELE/LOG ROLLER; DR. MELTON CAME TO THE FLOOR AND HE TOLD ME PT ON PUREE AND ALSO FOR SWALLOW EVALUATION.
--- NOTE | 2018-01-02 23:55 | NUR ---
TELE/CREDIT DEPARTMENT MANAGER; DR. MELTON WENT TO PT'S ROOM AND HE TALKED TO THE PT.
[2018-01-03] MEDS ORDERED: LEVOFLOXACIN 500 MG /D5W 100ML 100 ML IV ONE (00:10)
[2018-01-03] MEDS: LEVOFLOXACIN 500 MG /D5W 100ML 500 MG in PREMIX 1 EA IV SCH ×2 (00:35→23:11)
[2018-01-03 04:00] VITALS: BP 143/78
--- NOTE | 2018-01-03 06:48 | NUR ---
TELE/DEVELOPMENT DISABILITY SPECIALIST; PT ON SB 57. SLEPT ON AND OFF. BREATHING NON LABORED. FC INTACT . AM CARE DONE BY THE SALES AND SERVICE TECHNICIAN. HAS BEEN TURNED AND REPOSITIONED FOR COMFORT. WILL CONTINUE TO MONITOR. CALL LIGHT WITHIN REACH. WILL ENDORSE TO THE DAY SHIFT NURSE FOR CONTINUITY OF CARE.
[2018-01-03 07:05] LABS: TROPONIN I < 0.017 ng/mL (0.00-0.056)
[2018-01-03 07:06] LABS: ALANINE AMINOTRANSFERASE 33 U/L (12-78); ALBUMIN 2.4 g/dL (3.4-5.0); ALKALINE PHOSPHATASE 49 U/L (46-116); ASPARTATE AMINOTRANSFERASE 21 U/L (15-37); BILIRUBIN,TOTAL 0.4 mg/dL (0.2-1.0); CALCIUM, SERUM 8.2 mg/dL (8.5-10.1); CARBON DIOXIDE 28 mmol/L (21-32); CHLORIDE 106 mmol/L (98-107); CHOLESTEROL 109 mg/dL (<200); CREATININE 0.8 mg/dL (0.6-1.3); GLUCOSE 86 mg/dL (74-106); HDL CHOLESTEROL 30 mg/dL (40-60); LDL 73 mg/dL (0-99); MAGNESIUM 2.1 mg/dL (1.8-2.4); PHOSPHORUS 3.5 mg/dL (2.5-4.9); POTASSIUM 3.4 mmol/L (3.5-5.1); SODIUM SERUM 140 mmol/L (136-145); TOTAL PROTEIN, SERUM 5.8 g/dL (6.4-8.2); TRIGLYCERIDES 57 mg/dL (30-150); UREA NITROGEN, BLOOD 7 mg/dL (7-18)
[2018-01-03] MEDS: PANTOPRAZOLE 40 MG TABLET.DR PO SCH (07:30)
--- NOTE | 2018-01-03 07:30 | NUR ---
RN OPENING NOTES RECEIVED PT. PT IS STABLE/SLEEPING IN BED. NO S/S OF RESP DISTRESS OR SOB. PT DOES NOT APPEAR TO BE IN PAIN AT THIS TIME. PT IS LETHARGIC, DIFFICULT TO AROUSE. ABLE TO OPEN EYES FOLLOWING INTRODUCTION OF PHYSICAL STIMULI, HOWEVER REMAINS NON-VERBAL. TELE MONITOR IN PLACE, CURRENTLY SB WITH HR BETWEEN 50-55. PT TO HAVE SWALLOW EVAL PRIOR TO INTRODUCTION OF FIRST MEAL R/T ASPIRATION PRECAUTIONS. SAFETY MEASURES IN PLACE, CALL LIGHT WITHIN REACH. WILL CONTINUE TO MONITOR.
[2018-01-03] MEDS: LINAGLIPTIN 5 MG TABLET PO SCH (09:00)
[2018-01-03] MEDS: DOCUSATE SODIUM 100 MG CAPSULE PO SCH (09:00)
[2018-01-03] MEDS: CHOLECALCIFEROL 1,000 UNIT TABLET (VIT D3) PO SCH (09:00)
[2018-01-03] MEDS: THIAMINE HCL 100 MG TABLET PO SCH ×2 (09:00→17:00)
[2018-01-03] MEDS: ASCORBIC ACID 500 MG TABLET PO SCH (09:00)
[2018-01-03] MEDS: DIVALPROEX SODIUM 250 MG TABLET.DR PO SCH ×3 (09:00→17:00)
[2018-01-03] MEDS ORDERED: FUROSEMIDE 20 MG/2 ML VIAL IV SCH (09:00)
[2018-01-03] MEDS: FLUTICASONE PROPIONATE 16 GM BOTTLE NS SCH (10:06)
[2018-01-03] MEDS: MULTIVITAMINS,THERAGRAN 1 UDTAB TABLET PO SCH (10:08)
--- NOTE | 2018-01-03 10:30 | NUR ---
RN NOTES LEFT AC IV INFILTRATED, REMOVED. HOSPITALIST ORDERED CT HEAD W/O CONTRAST AND NEURO CONSULT FOR PT BASED ON PT'S AROUSABILITY. WILL CONTINUE TO MONITOR.
[2018-01-03] MEDS ORDERED: POTASSIUM CHLORIDE 20 MEQ POWDER PACKET NG SCH (11:00)
[2018-01-03 12:00] VITALS: BP 129/70
[2018-01-03] MEDS ORDERED: POTASSIUM CL. PREMIX PERIPHER. 50 ML IV SCH (12:00)
[2018-01-03] MEDS ORDERED: POTASSIUM CHLORIDE 10 MEQ/50 ML PREMIXED IVPB FOR PERIPHERAL LINE IV SCH (12:00)
[2018-01-03 12:25] LABS: BASOPHILS # (AUTO) 0.1 /CMM (0.0-0.2); BASOPHILS % (AUTO) 0.8 % (0.0-2.0); EOSINOPHILS % (AUTO) 4.2 % (0.0-6.0); HEMATOCRIT 38 % (39-51); HEMOGLOBIN 12.8 g/dL (13.5-17.5); LYMPHOCYTES # (AUTO) 1.6 /CMM (0.8-4.8); LYMPHOCYTES % (AUTO) 20.7 % (20.0-44.0); MEAN CORPUSCULAR HEMOGLOBIN 32 PG (26.0-33.0); MEAN CORPUSCULAR HGB CONC 34 g/dl (31.0-36.0); MEAN CORPUSCULAR VOLUME 93 fL (80-96); MONOCYTES # (AUTO) 1.4 /CMM (0.1-1.30); MONOCYTES % (AUTO) 17.1 % (2.0-12.0); NEUTROPHILS # (AUTO) 4.6 /CMM (1.8-8.9); NEUTROPHILS % (AUTO) 57.2 % (43.0-81.0); PLATELET COUNT (AUTO) 291 /CMM (150-450); RDW COEFFICIENT OF VARIATION 11.9 (11.5-15.0); RED BLOOD CELL COUNT(AUTO) 4.05 MIL/uL (4.5-6.0)
[2018-01-03 16:00] VITALS: BP 125/72
--- NOTE | 2018-01-03 19:38 | NUR ---
RN CLOSING NOTE PT IN BED RESTING. NO S/S OF RESP DISTRESS OR SOB. NO C/O PAIN. ALL PT NEEDS ANTICIPATED AND MET. SAFETY MEASURES IN PLACE, CALL LIGHT IN REACH. WILL ENDORSE TO DIRECTOR OF PHARMACY FOR SALLY.
--- NOTE | 2018-01-03 19:50 | NUR ---
RN INITIAL NOTES: RECEIVED REPORT FROM ELVIN BERNARDO, PT ION BED, LETHARGIC, AROUSES TO PAINFUL STIMULI ONLY, STERNAL RUB, AWARE, RESPIRATION EVEN AND UNLABORED, ON 2L VIA NC,NO FACIAL GRIMACE NOTED. IV ACCESS PATENT AND FLUSHING WELL, INFUSING WITH NS AT TKO. BLE OFFLOADED. SAFETY PRECAUTIONS FOR FALL INITIATED, CALL LIGHT IN REACH, WILL CONTINUE MONITORING PT.
[2018-01-03 20:00] VITALS: BP 134/79
--- NOTE | 2018-01-03 20:00 | NUR ---
RN NOTES: WENT TO PT'S ROOM, PT AWAKE, TALKING STATED "HI AND HELLO", BUT WHEN YOU ASK QUESTION, PT UNABLE TO COMPREHEND.
[2018-01-03] MEDS ORDERED: MIRTAZAPINE 15 MG TABLET PO SCH (22:00)
--- NOTE | 2018-01-04 | NUR ---
RN NOTES: PT MORE AWAKE, STILL UNABLE TO COMPREHEND WHEN ASKED CERTAIN QUESTIONS BUT PT NOW TALKING, HE EVEN STATED "ENEDINA FRAGA, THANK YOU!".
--- NOTE | 2018-01-04 04:31 | NUR ---
RN NOTES: SEEN PT SLEEPING AT THIS TIME, ON 2L NC RESPIRATION EVEN AND UNLABORED,
--- NOTE | 2018-01-04 06:55 | NUR ---
RN CLOSING NOTES: PT AWAKE, TALKING, REMAINS NPO, IV ACCESS REMAINS PATENT AND FLUSHING WELL, INFUSING WITH NS AT TKO. BLE OFFLOADED, SAFETY PRECAUTIONS FOR FALL REMAINS ENGAGED, CALL LIGHT IN REACH, WILL ENDORSE TO DAY RN FOR SALLY.
[2018-01-04] MEDS: PANTOPRAZOLE 40 MG TABLET.DR PO SCH (07:30)
--- NOTE | 2018-01-04 07:42 | NUR ---
RN NOTES PATIENT OPENS EYES, VERBAL AT TIMES, BUT CONFUSED, UNABLE TO FOLLOW COMMANDS, PATIENT NPO AT THIS TIME, WAITING FOR SWALLOW EVALUATION. KEPT COMFORTABLE, NEEDS ATTENDED AND MET, CALL LIGHT WITHIN REACH, WILL CONTINUE TO MONITOR.
[2018-01-04 08:00] VITALS: BP 147/90
[2018-01-04 08:27] LABS: BASOPHILS % (AUTO) 0.7 % (0.0-2.0); EOSINOPHILS % (AUTO) 4.1 % (0.0-6.0); HEMATOCRIT 38 % (39-51); LYMPHOCYTES # (AUTO) 1.6 /CMM (0.8-4.8); LYMPHOCYTES % (AUTO) 23.5 % (20.0-44.0); MEAN CORPUSCULAR HEMOGLOBIN 32 PG (26.0-33.0); MEAN CORPUSCULAR HGB CONC 35 g/dl (31.0-36.0); MEAN CORPUSCULAR VOLUME 92 fL (80-96); NEUTROPHILS # (AUTO) 4.1 /CMM (1.8-8.9); NEUTROPHILS % (AUTO) 56.7 % (43.0-81.0); PLATELET COUNT (AUTO) 307 /CMM (150-450); RDW COEFFICIENT OF VARIATION 11.8 (11.5-15.0); RED BLOOD CELL COUNT(AUTO) 4.06 MIL/uL (4.5-6.0); WHITE BLOOD COUNT (AUTO) 6.9 K/uL (4.3-11.0)
[2018-01-04 08:48] LABS: CALCIUM, SERUM 8.5 mg/dL (8.5-10.1); CREATININE 0.8 mg/dL (0.6-1.3); PHOSPHORUS 3.1 mg/dL (2.5-4.9); POTASSIUM 3.9 mmol/L (3.5-5.1)
--- NOTE | 2018-01-04 09:00 | NUR ---
RN NOTES PATIENT MORE ALERT, ORIENTED X2, SEEN BY SPEECH THERAPY FOR A SWALLOW EVAL. RECOMMENDED PUREED WITH NECTAR THICK LIQUID.
[2018-01-04] MEDS: THIAMINE HCL 100 MG TABLET PO SCH ×2 (09:46→16:50)
[2018-01-04] MEDS: CHOLECALCIFEROL 1,000 UNIT TABLET (VIT D3) PO SCH (09:46)
[2018-01-04] MEDS: LINAGLIPTIN 5 MG TABLET PO SCH (09:46)
[2018-01-04] MEDS: DIVALPROEX SODIUM 250 MG TABLET.DR PO SCH ×3 (09:46→16:50)
[2018-01-04] MEDS: MULTIVITAMINS,THERAGRAN 1 UDTAB TABLET PO SCH (09:46)
[2018-01-04] MEDS: ASCORBIC ACID 500 MG TABLET PO SCH (09:46)
[2018-01-04] MEDS: DOCUSATE SODIUM 100 MG CAPSULE PO SCH (09:46)
[2018-01-04] MEDS: FLUTICASONE PROPIONATE 16 GM BOTTLE NS SCH (09:48)
--- NOTE | 2018-01-04 10:22 | NUR ---
RN NOTES CALLED [facility] PER RN, PATIENT'S INVEGA IS DUE TOMORROW, UNABLE TO PROVIDE MEDICATIONS.
[2018-01-04] MEDS ORDERED: NA PHOS,M-B/NA PHOS,DI-BA 1 EA ENEMA RC PRN (12:00)
--- NOTE | 2018-01-04 12:21 | NUR ---
WOUND CARE CONSULT WOUND CARE RECEIVED CONSULT FOR LOW CHARLES SCALE. PATIENT WITH CHARLES AT 12, ALL PRESSURE ULCER PREVENTION MEASURES ARE NOTED TO BE IN PLACE. WOUND CARE WILL DEFER CONSULT AND TREATMENT OF FOOT ISSUES TO PODIATRY AT THIS TIME PODIATRY IS CURRENTLY FOLLOWING. WILL SEE PRN.
--- NOTE | 2018-01-04 13:12 | NUR ---
RN NOTES PATIENT NON-COMPLIANT, REFUSING MEDICATIONS, EXPLAINED RISKS AND BENEFITS. EDUCATED PATIENT IMPORTANCE OF MEDICATIONS. PATIENT TURNED AND REPOSITIONED, ATE MEALS. KEPT COMFORTABLE. WILL CONTINUE TO MONITOR.
[2018-01-04 16:00] VITALS: BP 134/88
--- NOTE | 2018-01-04 18:44 | NUR ---
RN NOTES PATIENT A/OX1-2, NON-COMPLIANT AT TIMES, NEEDS ENCOURAGEMENT TO DRINK HIS MEDICATIONS. PATIENT TOLERATING PUREED DIET AT THIS TIME, WITH NECTAR THICK LIQUID. TURNED AND REPOSITIONED EVERY 2 HOURS, STEVEN HEELS OFFLOADED, NO BM TODAY, WILL ENDORSE TO VENDING TECHNICIAN TO GIVE ENEMA, PER OPAL'S NOTES. NEEDS ATTENDED AND MET, CALL LIGHT WITHIN REACH, WILL ENDORSE TO VENDING TECHNICIAN FOR SALLY.
--- NOTE | 2018-01-04 19:45 | NUR ---
RN INITIAL NOTES: RECEIVED REPORT FROM LIN BERNARDO. PT IN BED, AWAKE, A/O X2, ON RA RESPIRATION EVEN AND UNLABORED, DENIES ANY PAIN OR DISCOMFORT. IV ACCESS PATENT AND FLUSHING WELL, INFUSING WITH NS AT 10ML/HR. BLE OFFLOADED. SAFETY PRECAUTIONS FOR FALL INITIATED, CALL LIGHT IN REACH WILL COTNINUE TO MONITOR PT
[2018-01-04 20:00] VITALS: BP 133/85
--- NOTE | 2018-01-04 20:00 | NUR ---
RN NOTES: PER DAY RN LIN, RAJ MAHMOOD ORDER TO GIVE ENEMA FOR THE PT BUT SHE'S UNABLE TO DO IT, WILL PERFORM ENEMA TONIGHT
[2018-01-04] MEDS: LEVOFLOXACIN 500 MG /D5W 100ML 500 MG in PREMIX 1 EA IV SCH (23:19)
--- NOTE | 2018-01-05 02:55 | NUR ---
PRN LAXATIVE/FLEET ENEMA: PER MD ORDER, FOR STOOL RETENTION
[2018-01-05] MEDS: ACETAMINOPHEN 325 MG TABLET PO PRN (03:05)
--- NOTE | 2018-01-05 03:05 | NUR ---
PRN TYLENOL: PT C/O HEAD ACHE , PRN TYLENOL 650 MG TAB PO ADMINISTERED AT THIS TIME. WILL CONTINUE TO MONITOR
--- NOTE | 2018-01-05 06:53 | NUR ---
RN CLOSING NOTES: PT IN BED, AWAKE, REMAINS A/O X2 ON RA NO SOB NOTED. IV ACCESS REMAINS PATENT AND FLUSHING WELL, INFUSING WITH NS AT TKO. BLE KEPT OFFLOADED. SAEED CATHETER REMAINS IN PLACED, BAG EMPTIED. KEPT ON ASPIRATION PRECAUTION. VS REMAINS STABLE, NEEDS ATTENDED. SAFETY PRECAUTIONS FOR FALL REMAINS ENGAGED, CALL LIGHT IN REACH, WILL ENDORSE TO DAY RN FOR SALLY.
--- NOTE | 2018-01-05 07:15 | NUR ---
RN NOTES PT IS LAYING DOWN IN BED, RESTING COMFORTABLY. PT ON RA, RESPIRATIONS ARE EVEN AND UNLABORED. IV ON LAC INTACT AND RUNNING NS TKO, R HAND IV INTACT AND SL. SAEED CATHETER IS IN PLACE AND DRAINING TO GRAVITY. NO SIGNS OF DISTRESS NOTED. SAFETY MEASURES ARE IN PLACE, CALL LIGHT IS IN REACH. WILL CONTINUE TO MONITOR.
[2018-01-05 08:00] VITALS: BP 138/78
[2018-01-05] MEDS: FLUTICASONE PROPIONATE 16 GM BOTTLE NS SCH (08:21)
[2018-01-05] MEDS: MULTIVITAMINS,THERAGRAN 1 UDTAB TABLET PO SCH (08:22)
[2018-01-05] MEDS: CHOLECALCIFEROL 1,000 UNIT TABLET (VIT D3) PO SCH (08:22)
[2018-01-05] MEDS: THIAMINE HCL 100 MG TABLET PO SCH ×2 (08:22→17:00)
[2018-01-05] MEDS: PANTOPRAZOLE 40 MG TABLET.DR PO SCH (08:22)
[2018-01-05] MEDS: ASCORBIC ACID 500 MG TABLET PO SCH (08:22)
[2018-01-05] MEDS: DOCUSATE SODIUM 100 MG CAPSULE PO SCH (08:22)
[2018-01-05] MEDS: LINAGLIPTIN 5 MG TABLET PO SCH (08:22)
[2018-01-05] MEDS ORDERED: LACTULOSE 10 G/15 ML UDC (PYXIS) PO PRN (08:30)
[2018-01-05] MEDS: VALPROIC ACID 250 MG/5 ML UDC PO SCH ×3 (08:30→17:00)
--- NOTE | 2018-01-05 08:45 | NUR ---
RN NOTES AM MEDICATIONS WERE GIVEN IN APPLESAUCE FOR PUREE DIET. PT ATE HALF OF THE APPLESAUCE AND REFUSED THE REST.
[2018-01-05 16:00] VITALS: BP 134/78
--- NOTE | 2018-01-05 18:49 | NUR ---
RN NOTES PT IS SITTING UP IN BED, AWAKE AND RESTING COMFORTABLY. PT ON RA, RESPIRATIONS ARE EVEN AND UNLABORED. IV ON R HAND INTACT AND SL, IV ON LAC INTACT AND RUNNING TKO. SAEED CATHETER IS IN PLACE AND DRAINING TO GRAVITY. ALL PT NEEDS ANTICIPATED FOR AND MET. NO SIGNS OF DISTRESS NOTED. SAFETY MEASURES ARE IN PLACE, CALL LIGHT IS IN REACH. WILL ENDORSE TO HEALTH TECH RN FOR CONTINUITY OF CARE.
--- NOTE | 2018-01-05 19:45 | NUR ---
MS RN NOTES Report received. Patient received in bed, awake and alert and verbally responsive. No complaints of pain at this moment. Not in any type of distress. Pryor cath in place. Safety measures in place. Bed in lowest position with call light within reach. Will continue to monitor and assess patient
[2018-01-05 20:00] VITALS: BP 129/85
[2018-01-05] MEDS: LEVOFLOXACIN 500 MG /D5W 100ML 500 MG in PREMIX 1 EA IV SCH (23:31)
[2018-01-06] MEDS: PANTOPRAZOLE 40 MG TABLET.DR PO SCH (07:36)
--- NOTE | 2018-01-06 07:40 | NUR ---
MS RN OPENING NOTES: RECEIVED PATIENT AWAKE IN BED IN NO ACUTE SIGNS OF DISTRESS. HOB ELEVATED. A/O X2. VERBALLY RESPONSIVE, DENIES PAIN OR DISCOMFORTS AT THIS TIME. ON ROOM AIR, RESPIRATION EVEN AND UNLABORED. IV ACCESS ON SHAAN AND RIGHT HAND BOTH INTACT AND PATENT, FLUSHING WELL. SAFETY PRECAUTIONS FOR FALL MAINTAINED. BED IN LOW/LOCKED POSITION WITH SIDE-RAILS UP X3. CALL LIGHT IN REACH. WILL CONTINUE TO MONITOR PT.
--- NOTE | 2018-01-06 07:41 | NUR ---
MS RN CLOSING NOTES Report endorsed to oncoming shift nurse. Patient remained in bed, intermittently sleeping, easily aroused. Alert and oriented x2, verbally responsive. IV on Left AC 20g and Right hand 24g: patent and intact with NS running @10ml/hr TKO. Turn and repositioned every two hours and offloaded bilateral heels and elbows to reduce pressure and prevent from acquiring pressure sores. Pryor Cath in place with 500cc output: clear, yellow urine draining. Continue on antibiotic therapy for pneumonia, tolerated well. AM labs on 01/06/18. All anticipated needs provided and met. Safety measures in place. Bed in lowest position with bed alarm on and call light within reach.
[2018-01-06 08:00] VITALS: BP 143/94
[2018-01-06] MEDS: MULTIVITAMINS,THERAGRAN 1 UDTAB TABLET PO SCH (08:07)
[2018-01-06] MEDS: LINAGLIPTIN 5 MG TABLET PO SCH (08:07)
[2018-01-06] MEDS: VALPROIC ACID 250 MG/5 ML UDC PO SCH ×2 (08:07→12:05)
[2018-01-06] MEDS: THIAMINE HCL 100 MG TABLET PO SCH (08:07)
[2018-01-06] MEDS: DOCUSATE SODIUM 100 MG CAPSULE PO SCH (08:07)
[2018-01-06] MEDS: CHOLECALCIFEROL 1,000 UNIT TABLET (VIT D3) PO SCH (08:08)
[2018-01-06] MEDS: FLUTICASONE PROPIONATE 16 GM BOTTLE NS SCH (08:08)
[2018-01-06] MEDS: ASCORBIC ACID 500 MG TABLET PO SCH (08:08)
[2018-01-06 08:44] LABS: CALCIUM, SERUM 8.3 mg/dL (8.5-10.1); CREATININE 0.8 mg/dL (0.6-1.3); MAGNESIUM 1.9 mg/dL (1.8-2.4); PHOSPHORUS 3.3 mg/dL (2.5-4.9); POTASSIUM 3.7 mmol/L (3.5-5.1)
[2018-01-06 08:47] LABS: BASOPHILS % (AUTO) 0.9 % (0.0-2.0); EOSINOPHILS % (AUTO) 4.6 % (0.0-6.0); HEMATOCRIT 36 % (39-51); HEMOGLOBIN 12.8 g/dL (13.5-17.5); LYMPHOCYTES % (AUTO) 26.9 % (20.0-44.0); MEAN CORPUSCULAR HEMOGLOBIN 32 PG (26.0-33.0); MEAN CORPUSCULAR HGB CONC 35 g/dl (31.0-36.0); MEAN CORPUSCULAR VOLUME 90 fL (80-96); MONOCYTES % (AUTO) 16.2 % (2.0-12.0); NEUTROPHILS % (AUTO) 51.4 % (43.0-81.0); PLATELET COUNT (AUTO) 360 /CMM (150-450); RDW COEFFICIENT OF VARIATION 12.7 (11.5-15.0); RED BLOOD CELL COUNT(AUTO) 4.04 MIL/uL (4.5-6.0); WHITE BLOOD COUNT (AUTO) 6.7 K/uL (4.3-11.0)
[2018-01-06] MEDS: ACETAMINOPHEN 325 MG TABLET PO PRN (09:47)
--- NOTE | 2018-01-06 09:53 | NUR ---
RN NOTES PATIENT VERBALIZED THAT HE HAS HEADACHE, PRN TYLENOL 650MG GIVEN. WILL CONTINUE TO MONITOR.
[2018-01-06 12:00] VITALS: BP 136/86
[2018-01-06] MEDS ORDERED: LEVO500T2 PO (12:24)
--- NOTE | 2018-01-06 14:10 | NUR ---
RN NOTES PATIENT FOR DISCHARGE THIS AFTERNOON. REPORT GIVEN TO TOVA NELSON OF [facility] AND SAID THAT PATIENT WILL GO TO ROOM 29B. CALLED AND LEFT MESSAGE TO APOLLO WALLACE, PT'S PERSON TO NOTIFY THAT [facility] WILL BE [facility].
--- NOTE | 2018-01-06 15:23 | NUR ---
RN DISCHARGED NOTES: PATIENT DISCHARGED TO [facility] IN STABLE CONDITION. A/O X2. SAME ABLE TO TO COMMUNICATE VERBALLY WITH EPISODE OF FORGETFULNESS. V/S TAKEN AND RECORDED. PHOTOS OF SKIN TAKEN AND FILED ON CHART. SAEED CATHETER REMOVED AND PT VOIDED ON DIAPER. ON ROOM AIR, RESPIRATION EVEN AND UNLABORED. ALL BELONGINGS ACCOUNTED FOR AND SIGNED FORM. IV ACCESS ON SHAAN AND RIGHT HAND BOTH REMOVED WITH NO BLEEDING NOTED. HEALTH TEACHINGS GIVEN TO PT BUT SEEMS NOT INTERESTED IN LISTENING. PT LEFT UNIT AT 1520 VIA GURNEY IN NO ACUTE SIGNS OF DISTRESS ACCOMPANIED BY 2 EMT'S. MD AND CHARGE NURSE AWARE OF DISCHARGE.
== END 2018-01-06 15:30 | DRG 193 ==
LOC: ER 18:24 → TELE 23:12 → MED 01-03 11:52
PROVIDERS: ADMIT Internal Medicine; ATTEND Internal Medicine
DX: J15.9 Unspecified bacterial pneumonia (principal); E43 Unspecified severe protein-calorie malnutrition; G92 Toxic encephalopathy; D68.59 Other primary thrombophilia; K56.7 Ileus, unspecified; J44.0 Chronic obstructive pulmonary disease with (acute) lower respiratory infection; E11.9 Type 2 diabetes mellitus without complications; F03.90 Unspecified dementia, unspecified severity, without behavioral disturbance, psychotic disturbance, mood disturbance, and anxiety; F17.210 Nicotine dependence, cigarettes, uncomplicated; F20.9 Schizophrenia, unspecified; G89.29 Other chronic pain; K21.9 Gastro-esophageal reflux disease without esophagitis; Z79.84 Long term (current) use of oral hypoglycemic drugs; Z79.899 Other long term (current) drug therapy; Z68.26 Body mass index [BMI] 26.0-26.9, adult; K72.90 Hepatic failure, unspecified without coma; Z87.01 Personal history of pneumonia (recurrent)
CPT/HCPCS: 36415; 36600; 70450-TC; 71045-TC; 74018; 80048-TC; 80053-TC; 80061-TC; 80076-TC; 80164-TC; 82140-TC; 82803-TC; 82962-TC; 83605-TC; 83735-TC; 83880; 84100-TC; 84484-TC; 85025-TC; 85730-TC; 87040-TC; 87081-TC; 87086-TC; 92611-TC; 93307-TC; A4216; A4606; J0692; J1940; J1956; J3370; J3480; J7050; J7060; Z7610

== ENCOUNTER 2018-09-10 21:37 | Emergency (ER) | payer MEDICARE, OTHER ==
[~2018-09-10] VITALS: Ht 175.3 cm; Wt 54.4 kg
[~2018-09-10 21:37] MED LIST changes: +LEVO500T2 PO
--- NOTE | 2018-09-10 21:50 | NUR ---
PT BIBPA. C/O "TRIPPED AND FELL, HIT MY HEAD" -KO -N/V -DIZZY AOX.2, NOT IN RESPIRATORY DISTRESS, V/S STABLE, KEPT RESTED AND COMFORTABLE, WILL CONTINUE TO MONITOR, AWAITING ER MD FOR EVAL.
--- NOTE | 2018-09-10 22:47 | NUR ---
SEEN AND EXAMINED BY DR. FELIZ, SKIN ADHESIVE APPLIED BY DR. FELIZ.
[2018-09-10 23:32] LABS: BASOPHILS # (AUTO) 0.1 /CMM (0.0-0.2); BASOPHILS % (AUTO) 0.9 % (0.0-2.0); EOSINOPHILS % (AUTO) 2.6 % (0.0-6.0); HEMATOCRIT 39 % (39-51); HEMOGLOBIN 13.8 g/dL (13.5-17.5); LYMPHOCYTES # (AUTO) 2.3 /CMM (0.8-4.8); LYMPHOCYTES % (AUTO) 26.6 % (20.0-44.0); MEAN CORPUSCULAR HGB CONC 35 g/dl (31.0-36.0); MEAN CORPUSCULAR VOLUME 89 fL (80-96); MONOCYTES % (AUTO) 11.9 % (2.0-12.0); NEUTROPHILS # (AUTO) 5.1 /CMM (1.8-8.9); PLATELET COUNT (AUTO) 220 /CMM (150-450); RED BLOOD CELL COUNT(AUTO) 4.43 MIL/uL (4.5-6.0); WHITE BLOOD COUNT (AUTO) 8.8 K/uL (4.3-11.0)
[2018-09-10 23:39] LABS: CALCIUM, SERUM 9.3 mg/dL (8.5-10.1); CARBON DIOXIDE 28 mmol/L (21-32); CHLORIDE 99 mmol/L (98-107); CREATININE 0.9 mg/dL (0.6-1.3); GLUCOSE 97 mg/dL (74-106); POTASSIUM 5.5 mmol/L (3.5-5.1); SODIUM SERUM 133 mmol/L (136-145); UREA NITROGEN, BLOOD 17 mg/dL (7-18)
[2018-09-10 23:45] LABS: ALANINE AMINOTRANSFERASE 44 U/L (12-78); ALBUMIN 3.4 g/dL (3.4-5.0); ALKALINE PHOSPHATASE 99 U/L (46-116); ASPARTATE AMINOTRANSFERASE 24 U/L (15-37); BILIRUBIN,DIRECT 0.1 mg/dL (0.0-0.2); BILIRUBIN,TOTAL 0.3 mg/dL (0.2-1.0); TOTAL PROTEIN, SERUM 7.1 g/dL (6.4-8.2)
--- NOTE | 2018-09-10 23:55 | NUR ---
PT IS BACK FROM THE CT SCAN, AWAITING RESULT.
[2018-09-11 00:01] LABS: VALPROIC ACID 65 ug/mL (50-100)
[2018-09-11] MEDS ORDERED: CEPHALEXIN MONOHYDRATE 500 MG CAPSULE PO ONE ×2 (00:27→00:30)
--- NOTE | 2018-09-11 00:45 | NUR ---
[facility] CALLED FOR TRANSPORT. ETA [id number] TRIP# [id number]
[2018-09-11] MEDS: HALOPERIDOL LACTATE INJ 5 MG/ML VIAL IM ONE ×2 (01:00→03:00)
--- NOTE | 2018-09-11 02:22 | NUR ---
CALLED [facility]: REGISTERED DENTAL ASSISTANT . ETA 15 MINS
[2018-09-11 03:00] VITALS: BP 125/84
--- NOTE | 2018-09-11 03:00 | NUR ---
SPOKE TO SAYRA FROM [facility], AWARE PT TO BE TRANSFERRED BACK TO FACILITY VIA TRANSPORT.
--- NOTE | 2018-09-11 03:00 | NUR ---
REPORT GIVEN TO EMT FOR TRANSFER BACK TO [facility].
[2018-09-11] MEDS ORDERED: HALOPERIDOL LACTATE INJ 5 MG/ML VIAL ONE (03:11)
--- NOTE | 2018-09-11 03:19 | NUR ---
PT BECOMES AGITATED AND DOESNT COOPERATE, PT IS ON RESTRAINTS PER MD ORDER.
== END 2018-09-11 03:02 ==
LOC: ER 21:40
DX: S51.011A Laceration without foreign body of right elbow, initial encounter (principal); F03.90 Unspecified dementia, unspecified severity, without behavioral disturbance, psychotic disturbance, mood disturbance, and anxiety; G93.41 Metabolic encephalopathy; I10 Essential (primary) hypertension; K21.9 Gastro-esophageal reflux disease without esophagitis; E11.9 Type 2 diabetes mellitus without complications; R45.1 Restlessness and agitation; Z98.890 Other specified postprocedural states; W01.198A Fall on same level from slipping, tripping and stumbling with subsequent striking against other object, initial encounter; Y93.89 Activity, other specified; Y92.89 Other specified places as the place of occurrence of the external cause; Y99.8 Other external cause status
CPT/HCPCS: 12002; 36415; 70450; 72125; 73080; 80048; 80076; 80164; 84484; 85025; 85730; 93005; 96372; 99284; A4606; J1630

== ENCOUNTER 2019-01-29 23:14 | Emergency (ER) | payer MEDICARE, OTHER ==
[~2019-01-29] VITALS: Ht 175.3 cm; Wt 74.8 kg
--- NOTE | 2019-01-29 23:40 | NUR ---
LAB AND EKG AT BEDSIDE
--- NOTE | 2019-01-29 23:41 | NUR ---
NAEL FROM [facility]. TO ER BED 11. PT IS AAOX1. NAD NOTED, BREATHING EVEN AND UNLABORED. BROUGHT FOR ODD BEHAVOIR, PT WAS REPORTED TO BED "CHASING RATS IN THE FACILITY" AND GETTING VERBALLY AGGRESSIVE TO STAFF. PT HAVE HX OF DEMENTIA. THIS EPISODE HAPPENED FROM BEFORE WHEN HE HAD UTI. PT IS AFBRILE. DENIES ANY PAIN. AWAITING MD FOR EVAL.
[2019-01-29 23:43] LABS: BASOPHILS # (AUTO) 0.1 /CMM (0.0-0.2); BASOPHILS % (AUTO) 0.8 % (0.0-2.0); EOSINOPHILS % (AUTO) 3.6 % (0.0-6.0); HEMATOCRIT 39 % (39-51); HEMOGLOBIN 13.7 g/dL (13.5-17.5); LYMPHOCYTES # (AUTO) 1.9 /CMM (0.8-4.8); LYMPHOCYTES % (AUTO) 28.3 % (20.0-44.0); MEAN CORPUSCULAR HGB CONC 35 g/dl (31.0-36.0); MEAN CORPUSCULAR VOLUME 87 fL (80-96); MONOCYTES # (AUTO) 0.8 /CMM (0.1-1.30); MONOCYTES % (AUTO) 11.9 % (2.0-12.0); NEUTROPHILS # (AUTO) 3.7 /CMM (1.8-8.9); NEUTROPHILS % (AUTO) 55.4 % (43.0-81.0); PLATELET COUNT (AUTO) 225 /CMM (150-450); RED BLOOD CELL COUNT(AUTO) 4.56 MIL/uL (4.5-6.0); WHITE BLOOD COUNT (AUTO) 6.7 K/uL (4.3-11.0)
[2019-01-29 23:51] LABS: APPEARANCE,URINE Clear (CLEAR); BILIRUBIN,URINE Negative (NEGATIVE); BLOOD, URINE Negative Ery/uL (NEGATIVE); COLOR,URINE Yellow (YELLOW); KETONES,URINE Negative (NEGATIVE); LEUKOCYTE ESTERASE ,URINE Negative (NEGATIVE); NITRITE, URINE Negative (NEGATIVE); PH,URINE 5.5 (5.0-8.0); PROTEIN,URINE Negative (NEGATIVE); UGLUCOSE Negative (NEGATIVE)
[2019-01-29 23:53] LABS: CALCIUM, SERUM 9.2 mg/dL (8.5-10.1); CARBON DIOXIDE 25 mmol/L (21-32); CHLORIDE 105 mmol/L (98-107); GLUCOSE 106 mg/dL (74-106); POTASSIUM 3.9 mmol/L (3.5-5.1); SODIUM SERUM 137 mmol/L (136-145); UREA NITROGEN, BLOOD 15 mg/dL (7-18)
[2019-01-29 23:59] LABS: ALANINE AMINOTRANSFERASE 43 U/L (12-78); ALBUMIN 3.4 g/dL (3.4-5.0); ALKALINE PHOSPHATASE 84 U/L (46-116); ASPARTATE AMINOTRANSFERASE 25 U/L (15-37); BILIRUBIN,DIRECT 0.2 mg/dL (0.0-0.2); BILIRUBIN,TOTAL 0.4 mg/dL (0.2-1.0)
--- NOTE | 2019-01-30 01:15 | NUR ---
01:45 ETA [facility] TRIP [id number]
--- NOTE | 2019-01-30 01:23 | NUR ---
CALLED [facility] SPOKE WITH BIRGIT, STAFF. ASKED TO CALL BACK IN 10 MIN.
--- NOTE | 2019-01-30 01:37 | NUR ---
[facility] NOTIFIED THAT PT IS GOING BACK. SPOKE WITH LIN, ONE OF THE CAREGIVER/STAFF AT THE FACILITY
--- NOTE | 2019-01-30 01:51 | NUR ---
[facility] AT BEDSIDE FOR PT TRANSPORT TO [facility]. NAD NOTED UPON DC/ PT IN STABLE CONDITION FOR TRANSPORT
[2019-01-30 01:52] VITALS: BP 112/74
[2019-01-30 01:53] LABS: BACTERIA,URINE Few /HPF (None Seen); RBC,URINE 0-2 /HPF (0-2); SQUAMOUS EPITHELIAL CELL,UR Few /HPF (None Seen); WBC,URINE 0-2 /HPF (0-3)
== END 2019-01-30 01:53 | disposition home or self-care (01) ==
LOC: ER 23:17
DX: F03.90 Unspecified dementia, unspecified severity, without behavioral disturbance, psychotic disturbance, mood disturbance, and anxiety (principal); I10 Essential (primary) hypertension; K21.9 Gastro-esophageal reflux disease without esophagitis; E11.9 Type 2 diabetes mellitus without complications; F20.9 Schizophrenia, unspecified; M19.90 Unspecified osteoarthritis, unspecified site; Z98.890 Other specified postprocedural states; Z79.899 Other long term (current) drug therapy
CPT/HCPCS: 36415; 70450-TC; 71045-TC; 80048-TC; 80076-TC; 81000-TC; 84484-TC; 85025-TC; 85730-TC